=== PATIENT | male | born 1965 | race Hispanic/Latino ===

== ENCOUNTER → 2017-09-11 | Outpatient (CLI) | payer MEDICAID ==
[~2017-09-11] MED LIST: AMLO5TAB4 PO; HUM10VIA6 SQ
[2017-09-11 13:32] VITALS: BP 164/101
== END | disposition home or self-care (01) ==
LOC: WHH 10:07
PROVIDERS: ATTEND Podiatrist Foot & Ankle Surgery
DX: E11.621 Type 2 diabetes mellitus with foot ulcer (principal); L97.521 Non-pressure chronic ulcer of other part of left foot limited to breakdown of skin; L97.421 Non-pressure chronic ulcer of left heel and midfoot limited to breakdown of skin; E11.42 Type 2 diabetes mellitus with diabetic polyneuropathy; E66.01 Morbid (severe) obesity due to excess calories; E11.22 Type 2 diabetes mellitus with diabetic chronic kidney disease; I12.0 Hypertensive chronic kidney disease with stage 5 chronic kidney disease or end stage renal disease; N18.6 End stage renal disease; E11.21 Type 2 diabetes mellitus with diabetic nephropathy; E11.52 Type 2 diabetes mellitus with diabetic peripheral angiopathy with gangrene; E11.69 Type 2 diabetes mellitus with other specified complication; M86.8X8 Other osteomyelitis, other site; F10.11 Alcohol abuse, in remission; Z68.41 Body mass index [BMI] 40.0-44.9, adult
CPT/HCPCS: 10060; 87070; A4450; A6197; L3260

== ENCOUNTER → 2017-09-18 | Outpatient (CLI) | payer MEDICAID ==
[2017-09-18 14:32] VITALS: BP 139/88
== END | disposition home or self-care (01) ==
LOC: WHH 10:20
PROVIDERS: ATTEND Podiatrist Foot & Ankle Surgery
DX: E11.621 Type 2 diabetes mellitus with foot ulcer (principal); L97.523 Non-pressure chronic ulcer of other part of left foot with necrosis of muscle; E11.22 Type 2 diabetes mellitus with diabetic chronic kidney disease; I12.0 Hypertensive chronic kidney disease with stage 5 chronic kidney disease or end stage renal disease; N18.6 End stage renal disease; E11.42 Type 2 diabetes mellitus with diabetic polyneuropathy; E11.21 Type 2 diabetes mellitus with diabetic nephropathy; E11.52 Type 2 diabetes mellitus with diabetic peripheral angiopathy with gangrene; E11.69 Type 2 diabetes mellitus with other specified complication; M86.8X8 Other osteomyelitis, other site; E66.01 Morbid (severe) obesity due to excess calories; F10.11 Alcohol abuse, in remission; Z68.41 Body mass index [BMI] 40.0-44.9, adult
CPT/HCPCS: 99214; A6248; A6253

== ENCOUNTER → 2017-09-25 | Outpatient (CLI) | payer MEDICAID ==
[2017-09-25 16:30] VITALS: BP 129/72
== END | disposition home or self-care (01) ==
LOC: WHH 09:50
PROVIDERS: ATTEND Podiatrist Foot & Ankle Surgery
DX: E11.621 Type 2 diabetes mellitus with foot ulcer (principal); L97.521 Non-pressure chronic ulcer of other part of left foot limited to breakdown of skin; E11.69 Type 2 diabetes mellitus with other specified complication; M86.8X7 Other osteomyelitis, ankle and foot; E11.42 Type 2 diabetes mellitus with diabetic polyneuropathy; E11.21 Type 2 diabetes mellitus with diabetic nephropathy; E11.52 Type 2 diabetes mellitus with diabetic peripheral angiopathy with gangrene; I96 Gangrene, not elsewhere classified; E11.65 Type 2 diabetes mellitus with hyperglycemia; E11.22 Type 2 diabetes mellitus with diabetic chronic kidney disease; I12.0 Hypertensive chronic kidney disease with stage 5 chronic kidney disease or end stage renal disease; N18.6 End stage renal disease; F10.11 Alcohol abuse, in remission; E66.01 Morbid (severe) obesity due to excess calories; Z68.41 Body mass index [BMI] 40.0-44.9, adult; Y90.9 Presence of alcohol in blood, level not specified
CPT/HCPCS: 99214; A6197; A6248

== ENCOUNTER → 2017-10-02 | Outpatient (CLI) | payer MEDICAID ==
[2017-10-02 14:39] VITALS: BP 161/95
== END | disposition home or self-care (01) ==
LOC: WHH 09:50
PROVIDERS: ATTEND Podiatrist Foot & Ankle Surgery
DX: E11.621 Type 2 diabetes mellitus with foot ulcer (principal); L97.521 Non-pressure chronic ulcer of other part of left foot limited to breakdown of skin; E11.69 Type 2 diabetes mellitus with other specified complication; M86.8X7 Other osteomyelitis, ankle and foot; E11.42 Type 2 diabetes mellitus with diabetic polyneuropathy; E11.21 Type 2 diabetes mellitus with diabetic nephropathy; E11.52 Type 2 diabetes mellitus with diabetic peripheral angiopathy with gangrene; I96 Gangrene, not elsewhere classified; E11.65 Type 2 diabetes mellitus with hyperglycemia; E11.22 Type 2 diabetes mellitus with diabetic chronic kidney disease; I12.0 Hypertensive chronic kidney disease with stage 5 chronic kidney disease or end stage renal disease; N18.6 End stage renal disease; F10.11 Alcohol abuse, in remission; E66.01 Morbid (severe) obesity due to excess calories; Z68.41 Body mass index [BMI] 40.0-44.9, adult; Y90.9 Presence of alcohol in blood, level not specified
CPT/HCPCS: 97597

== ENCOUNTER → 2017-10-04 | Outpatient (CLI) | payer MEDICAID ==
[2017-10-04 10:36] VITALS: BP 158/82
== END | disposition home or self-care (01) ==
LOC: WHH 10:00
PROVIDERS: ATTEND Podiatrist Foot & Ankle Surgery
DX: E11.621 Type 2 diabetes mellitus with foot ulcer (principal); L97.521 Non-pressure chronic ulcer of other part of left foot limited to breakdown of skin; E11.69 Type 2 diabetes mellitus with other specified complication; M86.8X7 Other osteomyelitis, ankle and foot; E11.42 Type 2 diabetes mellitus with diabetic polyneuropathy; E11.21 Type 2 diabetes mellitus with diabetic nephropathy; E11.52 Type 2 diabetes mellitus with diabetic peripheral angiopathy with gangrene; E11.22 Type 2 diabetes mellitus with diabetic chronic kidney disease; I12.0 Hypertensive chronic kidney disease with stage 5 chronic kidney disease or end stage renal disease; N18.6 End stage renal disease; F10.11 Alcohol abuse, in remission; E66.01 Morbid (severe) obesity due to excess calories; I96 Gangrene, not elsewhere classified; Z68.41 Body mass index [BMI] 40.0-44.9, adult; Y90.9 Presence of alcohol in blood, level not specified
CPT/HCPCS: 99211; A6197; A6209

== ENCOUNTER → 2017-10-16 | Outpatient (CLI) | payer MEDICAID ==
[2017-10-16 14:42] VITALS: BP 150/82
== END | disposition home or self-care (01) ==
LOC: WHH 10:00
PROVIDERS: ATTEND Podiatrist Foot & Ankle Surgery
DX: E11.621 Type 2 diabetes mellitus with foot ulcer (principal); L97.521 Non-pressure chronic ulcer of other part of left foot limited to breakdown of skin; E11.69 Type 2 diabetes mellitus with other specified complication; M86.8X7 Other osteomyelitis, ankle and foot; E11.42 Type 2 diabetes mellitus with diabetic polyneuropathy; E11.21 Type 2 diabetes mellitus with diabetic nephropathy; E11.52 Type 2 diabetes mellitus with diabetic peripheral angiopathy with gangrene; I96 Gangrene, not elsewhere classified; E11.22 Type 2 diabetes mellitus with diabetic chronic kidney disease; I12.0 Hypertensive chronic kidney disease with stage 5 chronic kidney disease or end stage renal disease; N18.6 End stage renal disease; F10.11 Alcohol abuse, in remission; E66.01 Morbid (severe) obesity due to excess calories; Z68.41 Body mass index [BMI] 40.0-44.9, adult; Y90.9 Presence of alcohol in blood, level not specified
CPT/HCPCS: 99211; A6209

== ENCOUNTER → 2017-10-23 | Outpatient (CLI) | payer MEDICAID ==
[2017-10-23 13:18] VITALS: BP 157/99
== END | disposition home or self-care (01) ==
LOC: WHH 09:45
PROVIDERS: ATTEND Podiatrist Foot & Ankle Surgery
DX: E11.621 Type 2 diabetes mellitus with foot ulcer (principal); L97.521 Non-pressure chronic ulcer of other part of left foot limited to breakdown of skin; E11.69 Type 2 diabetes mellitus with other specified complication; M86.8X7 Other osteomyelitis, ankle and foot; E11.42 Type 2 diabetes mellitus with diabetic polyneuropathy; E11.52 Type 2 diabetes mellitus with diabetic peripheral angiopathy with gangrene; I96 Gangrene, not elsewhere classified; E11.65 Type 2 diabetes mellitus with hyperglycemia; E11.22 Type 2 diabetes mellitus with diabetic chronic kidney disease; I12.0 Hypertensive chronic kidney disease with stage 5 chronic kidney disease or end stage renal disease; N18.6 End stage renal disease; F10.11 Alcohol abuse, in remission; E66.01 Morbid (severe) obesity due to excess calories; Z68.41 Body mass index [BMI] 40.0-44.9, adult; Y90.9 Presence of alcohol in blood, level not specified
CPT/HCPCS: 99214; A4450; A6209; A6248

== ENCOUNTER → 2017-10-30 | Outpatient (CLI) | payer MEDICAID ==
[2017-10-30 14:49] VITALS: BP 190/106
== END | disposition home or self-care (01) ==
LOC: WHH 10:25
PROVIDERS: ATTEND Podiatrist Foot & Ankle Surgery
DX: E11.621 Type 2 diabetes mellitus with foot ulcer (principal); L97.521 Non-pressure chronic ulcer of other part of left foot limited to breakdown of skin; E11.69 Type 2 diabetes mellitus with other specified complication; M86.8X7 Other osteomyelitis, ankle and foot; E11.42 Type 2 diabetes mellitus with diabetic polyneuropathy; E11.52 Type 2 diabetes mellitus with diabetic peripheral angiopathy with gangrene; I96 Gangrene, not elsewhere classified; E11.65 Type 2 diabetes mellitus with hyperglycemia; E11.22 Type 2 diabetes mellitus with diabetic chronic kidney disease; I12.0 Hypertensive chronic kidney disease with stage 5 chronic kidney disease or end stage renal disease; N18.6 End stage renal disease; F10.11 Alcohol abuse, in remission; E66.01 Morbid (severe) obesity due to excess calories; Z68.41 Body mass index [BMI] 40.0-44.9, adult; Y90.9 Presence of alcohol in blood, level not specified
CPT/HCPCS: 99214

== ENCOUNTER → 2017-11-13 | Outpatient (CLI) | payer MEDICAID ==
[2017-11-13 14:11] VITALS: BP 177/95
== END | disposition home or self-care (01) ==
LOC: WHH 10:30
PROVIDERS: ATTEND Podiatrist Foot & Ankle Surgery
DX: E11.621 Type 2 diabetes mellitus with foot ulcer (principal); L97.521 Non-pressure chronic ulcer of other part of left foot limited to breakdown of skin; E11.69 Type 2 diabetes mellitus with other specified complication; M86.8X7 Other osteomyelitis, ankle and foot; E11.42 Type 2 diabetes mellitus with diabetic polyneuropathy; E11.52 Type 2 diabetes mellitus with diabetic peripheral angiopathy with gangrene; I96 Gangrene, not elsewhere classified; E11.65 Type 2 diabetes mellitus with hyperglycemia; E11.22 Type 2 diabetes mellitus with diabetic chronic kidney disease; I12.0 Hypertensive chronic kidney disease with stage 5 chronic kidney disease or end stage renal disease; N18.6 End stage renal disease; F10.11 Alcohol abuse, in remission; E66.01 Morbid (severe) obesity due to excess calories; Z68.41 Body mass index [BMI] 40.0-44.9, adult; Y90.9 Presence of alcohol in blood, level not specified
CPT/HCPCS: 99214; A6209

== ENCOUNTER 2020-01-06 18:12 | Inpatient (IN) | payer MEDICAID ==
[~2020-01-06] VITALS: Ht 170.2 cm; Wt 114.8 kg
[2020-01-06] MEDS ORDERED: ZOSYN 3.375GM+NS 50ML 50 ML IV ONE (19:19)
[2020-01-06 19:22] LABS: BASOPHILS % (AUTO) 0.4 % (0.0-5.0); HEMATOCRIT 21.7 % (42-54); LYMPHOCYTES % (AUTO) 4.5 % (21.0-51.0); MEAN CORPUSCULAR HGB CONC 34.1 g/dL (32.0-36.0); MEAN CORPUSCULAR VOLUME 85.1 fL (79-99); NEUTROPHILS % (AUTO) 89.7 % (40.0-77.0); PLATELET COUNT (AUTO) 316 K/uL (130-400); RED BLOOD CELL COUNT(AUTO) 2.55 MIL/uL (4.50-6.20); RED CELL DISTRIBUTION WIDTH 13.2 % (11.0-15.5); WHITE BLOOD COUNT (AUTO) 13.5 K/uL (4.8-10.8)
[2020-01-06 19:47] LABS: INR 1.05 (0.85-1.15); PARTIAL THROMBOPLASTIN TIME 31.7 SEC (26.3-35.5); PROTHROMBIN TIME 11.3 SEC (9.6-11.6)
[2020-01-06 19:54] LABS: ALANINE AMINOTRANSFERASE 13 U/L (12-78); ALBUMIN 2.8 g/dL (3.5-5.0); ASPARTATE AMINOTRANSFERASE 14 U/L (10-37); BILIRUBIN,TOTAL 0.2 mg/dL (0.2-1.0); CARBON DIOXIDE 18 mmol/L (21-32); CHLORIDE 96 mmol/L (101-111); CREATINE KINASE, TOTAL 89 U/L (21-232); GLOMERULAR FILTR. RATE CALC 8 mL/min (>60); GLUCOSE,RANDOM 160 mg/dL (70-105); MYOGLOBIN 360 ng/mL (10-92); POTASSIUM 5.7 mmol/L (3.5-5.1); SODIUM SERUM 128 mmol/L (136-145); TOTAL PROTEIN, SERUM 8.5 g/dL (6.0-8.3); TROPONIN I < 0.04 ng/mL (0.00-0.06); UREA NITROGEN, BLOOD 65 mg/dL (7-18)
[2020-01-06] MEDS ORDERED: SODIUM POLYSTYRENE SULFONATE 15 GM/60 ML ML ONE (20:34)
[2020-01-06 20:45] LABS: APPEARANCE,URINE Clear (CLEAR); BILIRUBIN,URINE Negative (NEGATIVE); COLOR,URINE Yellow (YELLOW); GLUCOSE, URINE (UA) TRACE mg/dL (NEGATIVE); KETONES,URINE Negative (NEGATIVE); LEUKOCYTE ESTERASE ,URINE Negative (NEGATIVE); NITRATE,URINE Negative (NEGATIVE); OCCULT BLOOD,URINE Small (NEGATIVE); PROTEIN,URINE 300 mg/dL (NEGATIVE); UROBILINOGEN,URINE 0.2 mg/dL (0.2-1.0)
[2020-01-06] MEDS ORDERED: VANCOMYCIN 1.5 GM in SODIUM CHLORIDE 0.9% 250 ML IV ONE (20:45)
[2020-01-06] MEDS ORDERED: DEXTROSE 50%-WATER 50 ML DISP.SYRIN IV PRN (21:00)
[2020-01-06] MEDS ORDERED: GLUCAGON 1MG KIT 1 MG ML IM PRN (21:00)
[2020-01-06] MEDS ORDERED: ZOSYN 3.375GM+NS 50ML 50 ML IV SCH (21:00)
[2020-01-06] MEDS ORDERED: SODIUM POLYSTYRENE SULFONATE 15 GM/60 ML ML PO ONE (21:00)
[2020-01-06] MEDS ORDERED: ONDANSETRON HCL 4 MG/2 ML VIAL IVP PRN (21:00)
[2020-01-06 21:40] LABS: RBC,URINE 0-1 /HPF (0-1); WBC,URINE 0-1 /HPF (0-1)
[2020-01-06 21:41] LABS: BACTERIA,URINE Rare /HPF (None Seen); HYALINE CASTS, URINE 0-1 /LPF (0-1 /LPF); SQUAMOUS EPITHELIAL CELL,UR Rare /HPF (0-2)
[2020-01-07 05:07] LABS: BASOPHILS % (AUTO) 0.5 % (0.0-5.0); EOSINOPHILS % (AUTO) 1.6 % (0.0-8.0); LYMPHOCYTES % (AUTO) 7.4 % (21.0-51.0); MEAN CORPUSCULAR HEMOGLOBIN 28.6 pg (27.0-33.0); MEAN CORPUSCULAR HGB CONC 33.7 g/dL (32.0-36.0); MEAN CORPUSCULAR VOLUME 84.9 fL (79-99); MONOCYTES % (AUTO) 5.5 % (3.0-13.0); NEUTROPHILS % (AUTO) 84.4 % (40.0-77.0); PLATELET COUNT (AUTO) 297 K/uL (130-400); RED BLOOD CELL COUNT(AUTO) 2.38 MIL/uL (4.50-6.20); RED CELL DISTRIBUTION WIDTH 13.2 % (11.0-15.5); WHITE BLOOD COUNT (AUTO) 12.3 K/uL (4.8-10.8)
[2020-01-07 05:30] LABS: INR 1.07 (0.85-1.15); PARTIAL THROMBOPLASTIN TIME 30.7 SEC (26.3-35.5); PROTHROMBIN TIME 11.5 SEC (9.6-11.6)
[2020-01-07 05:35] LABS: ALBUMIN 2.5 g/dL (3.5-5.0); BILIRUBIN,TOTAL 0.2 mg/dL (0.2-1.0); HEMATOCRIT 20.2 % (42-54); MAGNESIUM 2.2 mg/dL (1.80-2.40); PHOSPHORUS 6.6 mg/dL (2.5-4.9); POTASSIUM 5.7 mmol/L (3.5-5.1); TOTAL PROTEIN, SERUM 7.8 g/dL (6.0-8.3); URIC ACID 11.8 mg/dL (2.6-7.2)
[2020-01-07 05:46] LABS: CREATININE 8.1 mg/dL (0.5-1.5)
[2020-01-07 06:00] LABS: HEMOGLOBIN A1C 6.5 % (4.0-6.0)
[2020-01-07] MEDS: ZOSYN 3.375GM+NS 50ML 50 ML IV SCH ×2 (06:00→18:00)
[2020-01-07] MEDS ORDERED: ZOSYN 3.375GM+NS 50ML 50 ML IV ONE (07:08)
[2020-01-07 08:57] LABS: HEMATOCRIT 19.8 % (42-54)
[2020-01-07] MEDS: Vitamin B Complex/Vit C/Folic Acid PO SCH (09:00)
[2020-01-07] MEDS ORDERED: FAMOTIDINE/PF 20 MG/2 ML VIAL IV SCH (09:00)
[2020-01-07] MEDS: INSULIN R PO SS1 SQ SCH ×3 (11:30→21:28)
--- NOTE | 2020-01-07 14:00 | NUR ---
CARE TRANSFERRED TO [place]. AAOX4, IN NO APPARENT DISTRESS, DENIES PAIN.
[2020-01-07 15:26] LABS: % IRON SATURATION 20.1 % (30-44)
[2020-01-07] MEDS ORDERED: SODIUM POLYSTYRENE SULFONATE 15 GM/60 ML ML ONE (15:59)
[2020-01-07] MEDS: SODIUM POLYSTYRENE SULFONATE 15 GM/60 ML ML PO SCH (16:01)
--- NOTE | 2020-01-07 16:12 | NUR ---
MET WITH PATIENT AT BEDSIDE IN ER DR. ABERNATHY MENTIONED THAT HE HAD RECOMMENDED HD ON THIS ADMISSION TO PATIENT . PT DECLINED IA DONE, PT LIVES ALONE, APT NO STAIRS, NO DME, DRIVES, INDEPENDENT, FOOT INJURY A WEEK+ AGO, CURRENTLY USING A WALKER, LIVING WITH EX SPOUSE, MOBILITY IMPAIRED2/2/ TO PAIN IN FOOT, FOUND TO HAVE ++ RENAL FAILURE, PT STATES WANTS TO THINK ABOUT HD X ONE MORE MONTH. ANNIE TO HAVING DM FOR MANY YEARS, POOR COMPLIANCE. COUNSELLED AND EDUCATION DONE ON HD/RISK AND BENEFIT. \DCP WILL BE HOME. Addendum: 01/07/20 at 1616 by GREG NASH RN Amended: Links added.
[2020-01-07 20:00] VITALS: BP 143/81
[2020-01-07 20:10] VITALS: BP 132/60
[2020-01-07] MEDS ORDERED: LISI-613 PO (20:18)
[2020-01-07] MEDS ORDERED: INSU10VI3 SQ (20:25)
[2020-01-07] MEDS ORDERED: INSULIN HUMULIN R 100 UNIT/ML 3ML ONE (21:24)
[2020-01-07 23:25] VITALS: BP 157/86
[2020-01-08] VITALS (19 sets, daily range): BP systolic 127–158; BP diastolic 71–92
[2020-01-08 03:43] LABS: BASOPHILS % (AUTO) 0.6 % (0.0-5.0); EOSINOPHILS % (AUTO) 2.6 % (0.0-8.0); HEMATOCRIT 21.7 % (42-54); LYMPHOCYTES % (AUTO) 8.9 % (21.0-51.0); MEAN CORPUSCULAR HEMOGLOBIN 28.8 pg (27.0-33.0); MEAN CORPUSCULAR HGB CONC 33.2 g/dL (32.0-36.0); MEAN CORPUSCULAR VOLUME 86.8 fL (79-99); MONOCYTES % (AUTO) 6.5 % (3.0-13.0); NEUTROPHILS % (AUTO) 81.1 % (40.0-77.0); PLATELET COUNT (AUTO) 305 K/uL (130-400); RED CELL DISTRIBUTION WIDTH 13.2 % (11.0-15.5); WHITE BLOOD COUNT (AUTO) 9.3 K/uL (4.8-10.8)
[2020-01-08 03:57] LABS: INR 1.05 (0.85-1.15); PARTIAL THROMBOPLASTIN TIME 30.6 SEC (26.3-35.5); PROTHROMBIN TIME 11.3 SEC (9.6-11.6)
[2020-01-08 04:02] LABS: POTASSIUM 5.3 mmol/L (3.5-5.1)
[2020-01-08] MEDS: INSULIN R PO SS1 SQ SCH ×4 (06:43→21:42)
[2020-01-08] MEDS: ZOSYN 3.375GM+NS 50ML 50 ML IV SCH ×2 (08:57→21:40)
[2020-01-08] MEDS: Vitamin B Complex/Vit C/Folic Acid PO SCH (08:57)
[2020-01-08] MEDS: FAMOTIDINE 20MG TAB 20 MG TAB PO SCH (09:52)
[2020-01-08] MEDS ORDERED: SODIUM CHLORIDE 0.9% 1000ML 1,000 ML IV ONE (13:31)
--- NOTE | 2020-01-08 13:53 | NUR ---
TAKEN TO SURGERY WITHOUT INCIDENT. PT AWAKE, ALERT. ASKED PT TO NOTIFY FAMILY
[2020-01-08] MEDS ORDERED: LIDOCAINE HCL 1% MDV 50ML VIAL ONE (14:10)
[2020-01-08] MEDS ORDERED: BUPIVACAINE/PF 0.5% 10ML VIAL ONE (14:10)
[2020-01-08] MEDS ORDERED: LIDOCAINE PF 2% 5ML ABBOJECT ONE ×2 (14:27→14:28)
[2020-01-08] MEDS ORDERED: PROPOFOL 10 MG/ML 20ML VIAL IV ONE (14:27)
[2020-01-08] MEDS ORDERED: SUCCINYLCHOLINE 200MG/10ML SYR ONE ×2 (14:27→14:34)
[2020-01-08] MEDS ORDERED: MIDAZOLAM HCL 1 MG/ML 2ML VIAL ONE (14:27)
[2020-01-08] MEDS ORDERED: DEXAMETHASONE SOD PHOSPHATE 10MG/ML 1ML VIAL ONE (14:27)
[2020-01-08] MEDS ORDERED: GLYCOPYRROLATE 1 MG/5 ML SYRINGE ONE (14:28)
[2020-01-08] MEDS ORDERED: NEOSTIGMINE 5MG/5ML SYR IV ONE (14:28)
[2020-01-08] MEDS ORDERED: FENTANYL CITRATE PF 50 MCG/1 ML 2ML VIAL ONE ×2 (14:28→14:41)
--- NOTE | 2020-01-08 16:41 | NUR ---
RECEIVED PT FROM SURGERY VS STABLE , PT IS ALERT ORIENTED, PT STATES HE CALLED TO INFORM HER THAT HE IS OUT OF SURGERY
[2020-01-08] MEDS: SODIUM POLYSTYRENE SULFONATE 15 GM/60 ML ML PO SCH (16:57)
[2020-01-08] MEDS: ACETAMINOPHEN 325 MG TAB PO PRN (21:40)
[2020-01-09] VITALS (7 sets, daily range): BP systolic 115–149; BP diastolic 64–83
[2020-01-09] MEDS: INSULIN R PO SS1 SQ SCH ×4 (06:45→20:40)
[2020-01-09 08:23] LABS: BASOPHILS % (AUTO) 0.5 % (0.0-5.0); EOSINOPHILS % (AUTO) 2.7 % (0.0-8.0); LYMPHOCYTES % (AUTO) 9.4 % (21.0-51.0); MEAN CORPUSCULAR HEMOGLOBIN 29.3 pg (27.0-33.0); MEAN CORPUSCULAR HGB CONC 34.1 g/dL (32.0-36.0); MEAN CORPUSCULAR VOLUME 85.9 fL (79-99); PLATELET COUNT (AUTO) 322 K/uL (130-400); RED BLOOD CELL COUNT(AUTO) 2.56 MIL/uL (4.50-6.20); RED CELL DISTRIBUTION WIDTH 13.5 % (11.0-15.5); WHITE BLOOD COUNT (AUTO) 11.3 K/uL (4.8-10.8)
[2020-01-09] MEDS: Vitamin B Complex/Vit C/Folic Acid PO SCH (09:00)
[2020-01-09] MEDS: FAMOTIDINE 20MG TAB 20 MG TAB PO SCH (09:00)
[2020-01-09] MEDS: ZOSYN 3.375GM+NS 50ML 50 ML IV SCH ×2 (09:03→21:06)
[2020-01-09 09:27] LABS: POTASSIUM 5.3 mmol/L (3.5-5.1)
[2020-01-09] MEDS: SODIUM POLYSTYRENE SULFONATE 15 GM/60 ML ML PO SCH (14:52)
[2020-01-10 03:56] VITALS: BP 139/89
[2020-01-10 05:05] LABS: HEMATOCRIT 21.7 % (42-54); MEAN CORPUSCULAR HEMOGLOBIN 29.1 pg (27.0-33.0); MEAN CORPUSCULAR HGB CONC 33.2 g/dL (32.0-36.0); MEAN CORPUSCULAR VOLUME 87.9 fL (79-99); RED BLOOD CELL COUNT(AUTO) 2.47 MIL/uL (4.50-6.20); RED CELL DISTRIBUTION WIDTH 13.4 % (11.0-15.5); WHITE BLOOD COUNT (AUTO) 7.1 K/uL (4.8-10.8)
[2020-01-10 05:26] LABS: PHOSPHORUS 7.3 mg/dL (2.5-4.9); POTASSIUM 4.8 mmol/L (3.5-5.1)
[2020-01-10 05:45] LABS: CREATININE 8.6 mg/dL (0.5-1.5)
[2020-01-10] MEDS: INSULIN R PO SS1 SQ SCH ×4 (06:17→22:07)
[2020-01-10 08:00] VITALS: BP 139/86
[2020-01-10] MEDS: Vitamin B Complex/Vit C/Folic Acid PO SCH (09:54)
[2020-01-10] MEDS: FAMOTIDINE 20MG TAB 20 MG TAB PO SCH (09:54)
[2020-01-10] MEDS: ZOSYN 3.375GM+NS 50ML 50 ML IV SCH ×2 (09:54→22:00)
[2020-01-10 11:55] VITALS: BP 132/89
[2020-01-10 16:00] VITALS: BP 139/80
[2020-01-10] MEDS: SODIUM POLYSTYRENE SULFONATE 15 GM/60 ML ML PO SCH (16:40)
[2020-01-10 19:49] VITALS: BP 171/93
--- NOTE | 2020-01-10 22:00 | NUR ---
ASSESSMENT PT RESTING QUIETLY IN BED. AAOX4, PLEASANT, COOPERATIVE. CURRENTLY DENIES ANY PAIN. WOUND VAC INTACT, NO LEAK NOTED. ASSESSMENT COMPLETED, SEE FLOW SHEET.
[2020-01-10 23:32] VITALS: BP 125/71
[2020-01-11 03:56] VITALS: BP 175/84
[2020-01-11 04:13] LABS: MEAN CORPUSCULAR HEMOGLOBIN 28.9 pg (27.0-33.0); MEAN CORPUSCULAR HGB CONC 33.7 g/dL (32.0-36.0); PLATELET COUNT (AUTO) 275 K/uL (130-400); RED BLOOD CELL COUNT(AUTO) 2.28 MIL/uL (4.50-6.20); RED CELL DISTRIBUTION WIDTH 13.7 % (11.0-15.5); WHITE BLOOD COUNT (AUTO) 6.9 K/uL (4.8-10.8)
[2020-01-11 04:21] LABS: INR 1.07 (0.85-1.15); PARTIAL THROMBOPLASTIN TIME 28.8 SEC (26.3-35.5); PROTHROMBIN TIME 11.5 SEC (9.6-11.6)
[2020-01-11 04:32] LABS: ALBUMIN 2.3 g/dL (3.5-5.0); BILIRUBIN,TOTAL 0.2 mg/dL (0.2-1.0); POTASSIUM 4.6 mmol/L (3.5-5.1); TOTAL PROTEIN, SERUM 7.4 g/dL (6.0-8.3)
[2020-01-11 04:33] LABS: HEMATOCRIT 19.6 % (42-54)
[2020-01-11 04:41] LABS: CREATININE 8.2 mg/dL (0.5-1.5)
[2020-01-11 04:49] LABS: BAND NEUTROPHILS % (MANUAL) 1 % (0-2); EOSINOPHILS % (MANUAL) 4 % (1-6); LYMPHOCYTES % (MANUAL) 11 % (22-44); MONOCYTES % (MANUAL) 3 % (2-9); SEGMENTED NEUTROPHILS % 81 % (40-70)
[2020-01-11 04:50] LABS: MAN.DIFF COMMENT-IMPRESSION MANUAL DIFFERENTIAL; PLATELET MORPHOLOGY COMMENT ADEQUATE
[2020-01-11] MEDS: INSULIN R PO SS1 SQ SCH ×4 (05:49→21:00)
[2020-01-11] MEDS: Vitamin B Complex/Vit C/Folic Acid PO SCH (08:16)
[2020-01-11] MEDS: ZOSYN 3.375GM+NS 50ML 50 ML IV SCH ×2 (08:16→21:24)
[2020-01-11] MEDS: FAMOTIDINE 20MG TAB 20 MG TAB PO SCH (08:16)
[2020-01-11 09:13] VITALS: BP 175/94
[2020-01-11] MEDS: SODIUM POLYSTYRENE SULFONATE 15 GM/60 ML ML PO SCH (11:16)
[2020-01-11] MEDS ORDERED: SODIUM CHLORIDE 0.9% 250 ML IV ONE (11:34)
[2020-01-11 11:41] VITALS: BP 152/71
[2020-01-11] MEDS: ACETAMINOPHEN 325 MG TAB PO PRN (12:44)
--- NOTE | 2020-01-11 14:25 | NUR ---
CM NOTE/PENDING WOUND VAC RECOMMENDATIONS PLACED CALL TO DR. ESPINOZA OFFICE, CLOSED FOR . CELL CALLED, NO ANSWER, UNABLE TO LEAVE VOICEMAIL. INFORMED PRIMARY NURSE, ELLIOTT CASTELLON, OF PENDING ORDER FOR WOUND CARE RECOMMENDATIONS AND DC PLAN. PER NURSE, WILL REPORT TO MD WHEN ROUNDS. PENDING PERMACATH TOMORROW FOR DIALYSIS INITIATION. CM TO FOLLOW UP
[2020-01-11 17:16] VITALS: BP 136/83
[2020-01-11 19:17] VITALS: BP 167/92
[2020-01-11 23:37] VITALS: BP 176/91
[2020-01-12] VITALS (11 sets, daily range): BP systolic 131–185; BP diastolic 47–98
[2020-01-12 04:04] LABS: HEMATOCRIT 22.5 % (42-54); MEAN CORPUSCULAR HEMOGLOBIN 28.3 pg (27.0-33.0); MEAN CORPUSCULAR HGB CONC 33.3 g/dL (32.0-36.0); MEAN CORPUSCULAR VOLUME 84.9 fL (79-99); RED BLOOD CELL COUNT(AUTO) 2.65 MIL/uL (4.50-6.20); RED CELL DISTRIBUTION WIDTH 14.1 % (11.0-15.5); WHITE BLOOD COUNT (AUTO) 7.8 K/uL (4.8-10.8)
[2020-01-12 04:26] LABS: POTASSIUM 4.7 mmol/L (3.5-5.1)
[2020-01-12 04:44] LABS: CREATININE 8.6 mg/dL (0.5-1.5)
[2020-01-12] MEDS: INSULIN R PO SS1 SQ SCH ×4 (05:49→21:52)
[2020-01-12] MEDS: FAMOTIDINE 20MG TAB 20 MG TAB PO SCH (09:00)
[2020-01-12] MEDS: Vitamin B Complex/Vit C/Folic Acid PO SCH (09:00)
--- NOTE | 2020-01-12 09:00 | NUR ---
PAGED DR. ABERNATHY REGARDING ELEVATED BP 181/97, PATIENT ASYMPTOMATIC, PENDING CALL BACK
--- NOTE | 2020-01-12 09:02 | NUR ---
RECEIVED CALL BACK FROM DR. ABERNATHY, MADE AWARE OF BP 181/97, NO NEW ORDERS STATED PATIENT NEEDS DIALYSIS. PATIENT AT THIS TIME IS PENDING PERMACATH PLACEMENT, DR. ABERNATHY AWARE
--- NOTE | 2020-01-12 09:55 | NUR ---
[facility] consult Wound vac was changed on 01/11/20. Not due for change today.
[2020-01-12] MEDS: ZOSYN 3.375GM+NS 50ML 50 ML IV SCH ×2 (10:15→20:47)
[2020-01-12] MEDS ORDERED: LIDOCAINE HCL 1% MDV 50ML VIAL ONE (11:20)
[2020-01-12] MEDS: SODIUM POLYSTYRENE SULFONATE 15 GM/60 ML ML PO SCH (11:25)
[2020-01-12] MEDS ORDERED: LIDOCAINE HCL 2% 20ML ONE (11:25)
[2020-01-12] MEDS ORDERED: SODIUM BICARB 50MEQ 50ML VIAL ONE (11:25)
--- NOTE | 2020-01-12 15:22 | NUR ---
RD NOTIFICATION Pt admitted with Renal Failure. Pt tolerating Renal Non Dialysis Diet order with no report of GI distress, 100% PO intake. Pt NPO at time of screen. Altered renal lab values pending hemodialysis. Pt s/p foot wound debridement with wound vac in place. Pt is vegetarian. Recommend Renal Dialysis, Vegetarian Diet Order Recommend Zeus BID for wound healing support RD to follow up with Vegetarian Dialysis Nutrition education RD to continue to monitor. Please notify as additional nutrition concerns arise. Thank you. Addendum: 01/12/20 at [address] RD Amended: Links added.
[2020-01-12 15:44] LABS: ALBUMIN 2.6 g/dL (3.5-5.0)
[2020-01-12 15:55] LABS: CREATININE 8.3 mg/dL (0.5-1.5)
[2020-01-12 16:01] LABS: % IRON SATURATION 27.8 % (30-44)
[2020-01-12 16:07] LABS: HEMOGLOBIN A1C 6.6 % (4.0-6.0)
[2020-01-12] MEDS ORDERED: HEPARIN SODIUM 5000UNIT/ML 1ML VIAL ONE (17:00)
[2020-01-13 03:07] VITALS: BP 157/86
[2020-01-13 04:33] LABS: BASOPHILS % (AUTO) 0.6 % (0.0-5.0); HEMATOCRIT 23.6 % (42-54); LYMPHOCYTES % (AUTO) 14.7 % (21.0-51.0); MEAN CORPUSCULAR HEMOGLOBIN 27.9 pg (27.0-33.0); MEAN CORPUSCULAR HGB CONC 33.5 g/dL (32.0-36.0); MEAN CORPUSCULAR VOLUME 83.4 fL (79-99); MONOCYTES % (AUTO) 5.3 % (3.0-13.0); NEUTROPHILS % (AUTO) 76.3 % (40.0-77.0); PLATELET COUNT (AUTO) 298 K/uL (130-400); RED BLOOD CELL COUNT(AUTO) 2.83 MIL/uL (4.50-6.20)
[2020-01-13 04:52] LABS: CREATININE 6.5 mg/dL (0.5-1.5); PHOSPHORUS 4.9 mg/dL (2.5-4.9); POTASSIUM 4.1 mmol/L (3.5-5.1)
[2020-01-13] MEDS: INSULIN R PO SS1 SQ SCH ×4 (06:28→21:00)
[2020-01-13 07:00] VITALS: BP 158/83
[2020-01-13] MEDS: FAMOTIDINE 20MG TAB 20 MG TAB PO SCH (08:20)
[2020-01-13] MEDS: Vitamin B Complex/Vit C/Folic Acid PO SCH (08:21)
[2020-01-13] MEDS: ZOSYN 3.375GM+NS 50ML 50 ML IV SCH ×2 (08:29→20:17)
[2020-01-13 11:00] VITALS: BP 110/69
--- NOTE | 2020-01-13 11:45 | NUR ---
dialysis treatment completed with a removal of 2 liter . tolerate well . denies any discomfort . call light i nreach .seeacutdialyslis care flow sheet for treatment and v/s .
[2020-01-13] MEDS ORDERED: HEPARIN SODIUM 5000UNIT/ML 1ML VIAL ONE (12:07)
[2020-01-13] MEDS ORDERED: 0.9% SODIUM CHLORIDE 1000 ML IV BAG IV PRN (12:15)
[2020-01-13] MEDS ORDERED: HEPARIN SODIUM 5000UNIT/ML 1ML VIAL IJ PRN ×2 (12:15)
[2020-01-13] MEDS ORDERED: SODIUM CHLORIDE 0.9% 1000ML 1,000 ML IV PRN (12:15)
[2020-01-13] MEDS: SODIUM POLYSTYRENE SULFONATE 15 GM/60 ML ML PO SCH (12:53)
--- NOTE | 2020-01-13 13:40 | NUR ---
DR. LLAMAS WAS NOTIFY ABD ,RETURN CALLED AND UPDATE OF PT . HAD HIS 2ND DIALYSIS TREATMENT JOEL HIS PERMACATHETER FOR DIALYSIS ,DONE . UPDATE OF PT STATUS , ..REGARDING PLAN OF CARE. AND OF HIS DISCHARGE PLAN
--- NOTE | 2020-01-13 14:40 | NUR ---
DR. ROMERO HERE AND UPDATE OF . [facility]. REGARDING FOLLOWUP HIS RT FOOT FOR CIRCULATION. . DR. ROMERO STATED TO LET DR. ESPINOZA KNOW OF THE ISSUES , REGARDING DR. LLAMAS IS UNABLE TO DO . PROCEDURE. TO HIS RT LEG FOR CIRCULATION ASSESSMENT . UNTIL SATURDAY. DR. ROMERO STATED TO CALL CALL . DR ESPINOZA REGARDING . CARE.
[2020-01-13 16:00] VITALS: BP 112/70
--- NOTE | 2020-01-13 16:20 | NUR ---
DR. LLAMAS WAS CALLED AND UPDATE ,STATUS REGARDING PENDING DR ESPINOZA DECISION . REGARDING HIS RT LEG CIRCULATION . CARE. STATED THAT IT WAS FINE, BUT IF NEEDED AND PT STAYS UNTIL SATURDAY TO CALL HIM, REGARDING STATUS
[2020-01-13 19:46] VITALS: BP 121/73
--- NOTE | 2020-01-13 20:45 | NUR ---
Wound Vac Dr Vazquez on floor assessing patient, informed him if he wanted wound vac to be changed today. Dr Vazquez stated that wound vac was working perfectly no need to change at this time.
[2020-01-13 23:37] VITALS: BP 139/84
[2020-01-14] VITALS (9 sets, daily range): BP systolic 120–157; BP diastolic 65–90
[2020-01-14 06:07] LABS: HEMATOCRIT 23.8 % (42-54); MEAN CORPUSCULAR HEMOGLOBIN 28.4 pg (27.0-33.0); MEAN CORPUSCULAR HGB CONC 33.6 g/dL (32.0-36.0); MEAN CORPUSCULAR VOLUME 84.4 fL (79-99); RED BLOOD CELL COUNT(AUTO) 2.82 MIL/uL (4.50-6.20); WHITE BLOOD COUNT (AUTO) 7.1 K/uL (4.8-10.8)
[2020-01-14] MEDS: INSULIN R PO SS1 SQ SCH ×4 (06:20→21:00)
[2020-01-14 06:30] LABS: CREATININE 5.9 mg/dL (0.5-1.5); PHOSPHORUS 5.4 mg/dL (2.5-4.9); POTASSIUM 3.7 mmol/L (3.5-5.1)
[2020-01-14] MEDS ORDERED: SODIUM CHLORIDE 0.9% 1000ML 1,000 ML IV SCH (08:59)
[2020-01-14] MEDS: Vitamin B Complex/Vit C/Folic Acid PO SCH (09:00)
[2020-01-14] MEDS: FAMOTIDINE 20MG TAB 20 MG TAB PO SCH (09:00)
[2020-01-14] MEDS: ASPIRIN 81MG TAB.CHEW PO SCH (09:30)
[2020-01-14] MEDS ORDERED: ATORVASTATIN CALCIUM 20 MG TABLET PO SCH (09:30)
[2020-01-14] MEDS: ZOSYN 3.375GM+NS 50ML 50 ML IV SCH ×2 (10:09→20:13)
[2020-01-14 11:10] LABS: HEPATITIS Bs ANTIGEN SCREEN P Negative (Negative)
[2020-01-14] MEDS ORDERED: HEPARIN SODIUM 1000UNIT/ML 10ML VIAL ONE (13:46)
[2020-01-14] MEDS ORDERED: LIDOCAINE HCL 2% 20ML ONE (13:46)
[2020-01-14] MEDS ORDERED: IODIXANOL 320 MG/ML 100 ML VIAL ONE ×3 (13:46→16:34)
[2020-01-14] MEDS ORDERED: NITROGLYCERIN 2 MG/VIAL VIAL IV ONE (14:40)
[2020-01-14] MEDS ORDERED: MIDAZOLAM HCL 1 MG/ML 2ML VIAL ONE (14:43)
[2020-01-14] MEDS ORDERED: FENTANYL CITRATE PF 50 MCG/1 ML 2ML VIAL ONE (14:43)
[2020-01-14] MEDS: SODIUM POLYSTYRENE SULFONATE 15 GM/60 ML ML PO SCH (14:48)
[2020-01-14] MEDS ORDERED: CLOPIDOGREL BISULFATE 300 MG TAB ONE (15:10)
[2020-01-14] MEDS ORDERED: ASPIRIN 325MG EC TAB 325 MG TABLET.DR PO ONE (15:12)
[2020-01-14] MEDS ORDERED: NICARDIPINE HCL 25 MG/10 ML ML IV ONE (15:13)
[2020-01-15] VITALS (7 sets, daily range): BP systolic 130–157; BP diastolic 73–98
[2020-01-15 04:56] LABS: HEMATOCRIT 23.8 % (42-54); MEAN CORPUSCULAR HEMOGLOBIN 27.9 pg (27.0-33.0); MEAN CORPUSCULAR HGB CONC 32.8 g/dL (32.0-36.0); RED BLOOD CELL COUNT(AUTO) 2.8 MIL/uL (4.50-6.20); WHITE BLOOD COUNT (AUTO) 6.4 K/uL (4.8-10.8)
[2020-01-15 05:13] LABS: CREATININE 7.5 mg/dL (0.5-1.5); POTASSIUM 4.1 mmol/L (3.5-5.1)
[2020-01-15] MEDS: INSULIN R PO SS1 SQ SCH ×3 (06:08→22:00)
[2020-01-15] MEDS: ZOSYN 3.375GM+NS 50ML 50 ML IV SCH ×2 (09:00→21:46)
[2020-01-15] MEDS: ASPIRIN 81MG TAB.CHEW PO SCH (14:17)
[2020-01-15] MEDS: CLOPIDOGREL BISULFATE 75 MG TAB PO SCH (14:17)
[2020-01-15] MEDS: FAMOTIDINE 20MG TAB 20 MG TAB PO SCH (14:17)
[2020-01-15] MEDS: Vitamin B Complex/Vit C/Folic Acid PO SCH (14:17)
--- NOTE | 2020-01-15 15:18 | NUR ---
CM NOTE discussed dc planning with dr vaca, states pt needs setup at [facility]. and plan is for dr ocasio to provide wound care orders for HH, and wound vac, and determine if pt will be on iv or PO antibiotics, and /or if can be given at HD center once setup. orders received. updated primary nurse Karri on above , wound vac order form on chart for signature.
[2020-01-15] MEDS: SODIUM POLYSTYRENE SULFONATE 15 GM/60 ML ML PO SCH (15:45)
--- NOTE | 2020-01-15 16:22 | NUR ---
RD UPDATE Pt s/p successful revascularization, as per EMR. Pt tolerating Renal Dialysis Diet, s/p Hemodialysis with no report of GI distress, Po intake at 75-100%. Pt with RLE 2+ edema. R-Heel wound. Altered renal labs. Recommend continue Renal Dialysis diet order. Hemodialysis-Vegetarian Education left in Pt chart per Isolation protocol Recommend Zeus BID, 500mg Vitamin C, 220mg Zinc Sulfate for wound healing support. RD to continue to monitor. Please notify as additional nutrition concerns arise. Thank you.
--- NOTE | 2020-01-15 16:27 | NUR ---
NUTRITION EDUCATION Renal Dialysis Nutrition education provided. Placed in Pt chart per Isolation protocol. RD to follow up. Addendum: 01/15/20 at [address] RD Amended: Links added.
[2020-01-15] MEDS: ATORVASTATIN CALCIUM 20 MG TABLET PO SCH (21:47)
[2020-01-15] MEDS: EPOETIN ALFA 10,000 UNIT/ML VIAL SQ SCH (21:47)
[2020-01-16 04:15] VITALS: BP 115/76
[2020-01-16 04:59] LABS: HEMATOCRIT 23.7 % (42-54); MEAN CORPUSCULAR HEMOGLOBIN 28.9 pg (27.0-33.0); MEAN CORPUSCULAR HGB CONC 33.8 g/dL (32.0-36.0); MEAN CORPUSCULAR VOLUME 85.6 fL (79-99); RED BLOOD CELL COUNT(AUTO) 2.77 MIL/uL (4.50-6.20); RED CELL DISTRIBUTION WIDTH 13.8 % (11.0-15.5); WHITE BLOOD COUNT (AUTO) 7.8 K/uL (4.8-10.8)
[2020-01-16 05:23] LABS: CREATININE 6.3 mg/dL (0.5-1.5); PHOSPHORUS 4.9 mg/dL (2.5-4.9); POTASSIUM 3.9 mmol/L (3.5-5.1)
[2020-01-16] MEDS: INSULIN R PO SS1 SQ SCH ×2 (06:52→21:46)
[2020-01-16 07:00] VITALS: BP 136/80
[2020-01-16] MEDS: CLOPIDOGREL BISULFATE 75 MG TAB PO SCH (10:28)
[2020-01-16] MEDS: FAMOTIDINE 20MG TAB 20 MG TAB PO SCH (10:28)
[2020-01-16] MEDS: ZOSYN 3.375GM+NS 50ML 50 ML IV SCH ×2 (10:28→21:57)
[2020-01-16] MEDS: Vitamin B Complex/Vit C/Folic Acid PO SCH (10:29)
[2020-01-16] MEDS: ASPIRIN 81MG TAB.CHEW PO SCH (10:29)
[2020-01-16 11:00] VITALS: BP 116/71
[2020-01-16 15:00] VITALS: BP 144/79
--- NOTE | 2020-01-16 15:21 | NUR ---
cm note referral faxed to local [facility] and also to [facility] for admisions, spoke to carl at local office, will followup with property management coordinator on saturday. also left message with [facility] to confirm receipt.
[2020-01-16 19:29] VITALS: BP 138/78
[2020-01-16] MEDS: ATORVASTATIN CALCIUM 20 MG TABLET PO SCH (21:57)
[2020-01-16] MEDS: EPOETIN ALFA 10,000 UNIT/ML VIAL SQ SCH (21:57)
[2020-01-16 23:18] VITALS: BP 137/81
[2020-01-17 03:49] VITALS: BP 135/79
[2020-01-17] MEDS: INSULIN R PO SS1 SQ SCH ×4 (05:29→21:48)
[2020-01-17 07:00] VITALS: BP 133/65
[2020-01-17] MEDS: Vitamin B Complex/Vit C/Folic Acid PO SCH (08:28)
[2020-01-17] MEDS: FAMOTIDINE 20MG TAB 20 MG TAB PO SCH (08:28)
[2020-01-17] MEDS: CLOPIDOGREL BISULFATE 75 MG TAB PO SCH (08:29)
[2020-01-17] MEDS: ASPIRIN 81MG TAB.CHEW PO SCH (08:29)
[2020-01-17] MEDS: ZOSYN 3.375GM+NS 50ML 50 ML IV SCH ×2 (08:29→21:48)
[2020-01-17 11:00] VITALS: BP 156/87
[2020-01-17 16:00] VITALS: BP 151/82
[2020-01-17 19:01] VITALS: BP 153/91
[2020-01-17] MEDS: ATORVASTATIN CALCIUM 20 MG TABLET PO SCH (21:46)
[2020-01-17] MEDS: EPOETIN ALFA 10,000 UNIT/ML VIAL SQ SCH (21:47)
[2020-01-17 23:16] VITALS: BP 150/87
[2020-01-18] VITALS (11 sets, daily range): BP systolic 111–157; BP diastolic 70–83
[2020-01-18 05:24] LABS: BASOPHILS % (AUTO) 0.6 % (0.0-5.0); HEMATOCRIT 25.7 % (42-54); LYMPHOCYTES % (AUTO) 15.8 % (21.0-51.0); MEAN CORPUSCULAR HEMOGLOBIN 28.5 pg (27.0-33.0); MEAN CORPUSCULAR HGB CONC 33.1 g/dL (32.0-36.0); MEAN CORPUSCULAR VOLUME 86.2 fL (79-99); NEUTROPHILS % (AUTO) 72.3 % (40.0-77.0); PLATELET COUNT (AUTO) 271 K/uL (130-400); RED BLOOD CELL COUNT(AUTO) 2.98 MIL/uL (4.50-6.20); RED CELL DISTRIBUTION WIDTH 13.9 % (11.0-15.5); WHITE BLOOD COUNT (AUTO) 7.2 K/uL (4.8-10.8)
[2020-01-18 05:30] LABS: INR 1.03 (0.85-1.15); PARTIAL THROMBOPLASTIN TIME 29.3 SEC (26.3-35.5); PROTHROMBIN TIME 11.1 SEC (9.6-11.6)
[2020-01-18 05:39] LABS: PHOSPHORUS 6.5 mg/dL (2.5-4.9); POTASSIUM 3.8 mmol/L (3.5-5.1)
[2020-01-18] MEDS: INSULIN R PO SS1 SQ SCH ×4 (05:41→20:57)
[2020-01-18] MEDS: FAMOTIDINE 20MG TAB 20 MG TAB PO SCH (09:00)
[2020-01-18] MEDS: ASPIRIN 81MG TAB.CHEW PO SCH (09:00)
[2020-01-18] MEDS: Vitamin B Complex/Vit C/Folic Acid PO SCH (09:00)
[2020-01-18] MEDS: CLOPIDOGREL BISULFATE 75 MG TAB PO SCH (09:00)
[2020-01-18] MEDS ORDERED: CEFAZOLIN SODIUM 1 GM VIAL IVP PRN (13:00)
--- NOTE | 2020-01-18 14:08 | NUR ---
CONSULT: NOTIFIED ROLANDO MARINELLI CRNA OF PATIENTS NPO STATUS AT 12:00 ON 01/18/20 OF [facility], NO ORDERS GIVEN. OK TO PROCEED WITH SURGERY.
--- NOTE | 2020-01-18 14:09 | NUR ---
POTENTIAL FOR INFECTION: CLIPPED LT ARM PER ANNIE ZHENG.
--- NOTE | 2020-01-18 14:17 | NUR ---
CM Note: Jaret Kelly pending approval and chair time CM spoke to Eligio nunes/Jaret Mendoza, verbalized received clinicals and lab, currently working on approval and chair time. Aware pt pending left AV Fistula placement today/tomorrow. Pt pending approval and chair time at this time. Primary nurse aware. CM to cont to follow up.
--- NOTE | 2020-01-18 14:19 | NUR ---
CM Note: Pending [facility] and [facility] consent and set up CM spoke to pt to discussed MD order for HH and [facility], pt verbalized he is busy at the moment, requested for CM to come back tomorrow. Pt pending to consent for HH and [facility] woundvac. MD pending to sign [facility] woundvac script, flagged in chart. Primary nurse aware. CM to cont to follow up.
[2020-01-18] MEDS ORDERED: ROPIVACAINE 0.5% 5MG/ML 30ML IJ ONE (14:23)
[2020-01-18] MEDS ORDERED: METOCLOPRAMIDE 10 MG/2 ML VIAL ONE (14:28)
[2020-01-18] MEDS ORDERED: FAMOTIDINE/PF 20 MG/2 ML VIAL IV ONE (14:28)
[2020-01-18] MEDS ORDERED: FAMOTIDINE/PF 20 MG/2 ML VIAL IV SCH (14:30)
[2020-01-18] MEDS ORDERED: METOCLOPRAMIDE 10 MG/2 ML VIAL IVP SCH (14:30)
[2020-01-18] MEDS ORDERED: CITRIC ACID/SODIUM CITRATE 30 ML UDCUP PO SCH (14:30)
[2020-01-18] MEDS: CITRIC ACID/SODIUM CITRATE 30 ML UDCUP ONE ×2 (14:43→15:00)
[2020-01-18] MEDS ORDERED: GLYCOPYRROLATE 1 MG/5 ML SYRINGE ONE (14:46)
[2020-01-18] MEDS ORDERED: DEXAMETHASONE SOD PHOSPHATE 10MG/ML 1ML VIAL ONE (14:46)
[2020-01-18] MEDS ORDERED: MIDAZOLAM HCL 1 MG/ML 2ML VIAL ONE (14:46)
[2020-01-18] MEDS ORDERED: NEOSTIGMINE 5MG/5ML SYR IV ONE (14:46)
[2020-01-18] MEDS ORDERED: SUCCINYLCHOLINE 200MG/10ML SYR ONE (14:46)
[2020-01-18] MEDS ORDERED: PROPOFOL 10 MG/ML 20ML VIAL IV ONE (14:46)
[2020-01-18] MEDS ORDERED: LIDOCAINE PF 2% 5ML ABBOJECT ONE (14:46)
[2020-01-18] MEDS ORDERED: ONDANSETRON HCL 4 MG/2 ML VIAL ONE (14:47)
[2020-01-18] MEDS ORDERED: ROCURONIUM 10MG/1ML SYR 10 MG/ML ML ONE (14:47)
[2020-01-18] MEDS ORDERED: FENTANYL CITRATE PF 50 MCG/1 ML 2ML VIAL ONE (14:47)
[2020-01-18] MEDS ORDERED: CEFAZOLIN SODIUM 1 GM VIAL ONE ×3 (15:08→15:46)
[2020-01-18] MEDS ORDERED: TRAMADOL HCL 50 MG TABLET PO PRN ×2 (16:45)
[2020-01-18] MEDS: ATORVASTATIN CALCIUM 20 MG TABLET PO SCH (20:09)
[2020-01-18] MEDS: EPOETIN ALFA 10,000 UNIT/ML VIAL SQ SCH (20:09)
--- NOTE | 2020-01-18 21:30 | NUR ---
PT HAD HD, 1.5 LITERS REMOVED. DID HAVE AV FISTULA TO LEFT ARM PLACED TODAY. PT IS SORE, HAS WEAK PULSE TO LEFT ARM. NUMB, AND UNABLE TO MOVE ARM. INFORMED PROCEDURE NURSES. IS AWARE ARM WILL FEEL LIKE THIS FOR 20HRS. PT OTHERWISE HAS NO CONCERNS.
[2020-01-19 00:16] VITALS: BP 151/78
[2020-01-19 04:16] VITALS: BP 151/87
[2020-01-19 05:56] LABS: HEMATOCRIT 22.4 % (42-54); MEAN CORPUSCULAR HEMOGLOBIN 28.4 pg (27.0-33.0); MEAN CORPUSCULAR HGB CONC 33.5 g/dL (32.0-36.0); MEAN CORPUSCULAR VOLUME 84.8 fL (79-99); RED BLOOD CELL COUNT(AUTO) 2.64 MIL/uL (4.50-6.20); WHITE BLOOD COUNT (AUTO) 7.1 K/uL (4.8-10.8)
[2020-01-19] MEDS: INSULIN R PO SS1 SQ SCH ×4 (05:58→21:32)
[2020-01-19 06:30] LABS: POTASSIUM 3.8 mmol/L (3.5-5.1)
[2020-01-19 07:54] VITALS: BP 151/84
[2020-01-19] MEDS: ASPIRIN 81MG TAB.CHEW PO SCH (08:53)
[2020-01-19] MEDS: CLOPIDOGREL BISULFATE 75 MG TAB PO SCH (08:54)
[2020-01-19] MEDS: FAMOTIDINE 20MG TAB 20 MG TAB PO SCH (08:54)
[2020-01-19] MEDS: Vitamin B Complex/Vit C/Folic Acid PO SCH (08:54)
--- NOTE | 2020-01-19 11:15 | NUR ---
CM Note: [facility] pending approval and delivery CM spoke to pt agreeable now for [facility] for home, PREETHI signed for [facility]. Faxed order, clinicals to [facility] and [facility] woundvac, confirmation received. Pt pending approval for HH and DME. Primary nurse aware. CM to cont to follow up.
[2020-01-19 11:37] VITALS: BP 132/77
--- NOTE | 2020-01-19 15:11 | NUR ---
CM Note: Jaret Kelly approval and chair time TTS @ 3:45pm CM spoke to Bony nunes/Jaret Mendoza, pt has approval and chair time TTS @3:45pm. Pt made aware of approval, given instructions, to arrived at the center 30min prior to chair time. Pt made aware currently pending approval for [facility], pending approval and delivery for [facility] woundvac. Primary nurse aware. CM to cont to follow up.
--- NOTE | 2020-01-19 15:27 | NUR ---
CM Note: [facility] Mondragon pending approval CM spoke to Fannie nunes/[facility] Mondragon , received request this morning, currently working on approval, aware dcp once approved and [facility] received. Pt pending approval at this time. Primary nurse aware. CM to cont to follow up.
--- NOTE | 2020-01-19 15:28 | NUR ---
CM Note: [facility] pending approval and delivery for woundvac CM spoke to [facility] rep , received request, currently working on approval. Pt pending approval and delivery of woundvac in room. Primary nurse aware. CM to cont to follow up.
[2020-01-19 15:38] VITALS: BP 125/74
[2020-01-19 19:48] VITALS: BP 92/59
[2020-01-19] MEDS: ATORVASTATIN CALCIUM 20 MG TABLET PO SCH (21:27)
[2020-01-19] MEDS: EPOETIN ALFA 10,000 UNIT/ML VIAL SQ SCH (21:27)
[2020-01-20] VITALS: BP 127/73
[2020-01-20 04:00] VITALS: BP 137/77
[2020-01-20 05:08] LABS: HEMATOCRIT 22.2 % (42-54); MEAN CORPUSCULAR HEMOGLOBIN 27.8 pg (27.0-33.0); MEAN CORPUSCULAR HGB CONC 32.4 g/dL (32.0-36.0); MEAN CORPUSCULAR VOLUME 85.7 fL (79-99); RED BLOOD CELL COUNT(AUTO) 2.59 MIL/uL (4.50-6.20); WHITE BLOOD COUNT (AUTO) 6.4 K/uL (4.8-10.8)
[2020-01-20 05:15] LABS: CREATININE 5.9 mg/dL (0.5-1.5); POTASSIUM 3.6 mmol/L (3.5-5.1)
[2020-01-20] MEDS: INSULIN R PO SS1 SQ SCH ×3 (06:01→16:30)
--- NOTE | 2020-01-20 06:47 | NUR ---
wound vac issues wound vac began beeping around midnight with error messages including "blockage", "low pressure" and "negative pressure" tubing checked for kinks, checked for adequate seal and all clamps are open. canister changed total of 350ml in canister had two other rns check and attempt to troubleshoot wound vac and it was determined that it was either positional or vac machine wound vac machine changed out. beeping resolved for about 15 mins and began again. dr ocasio called to his cell phone around 0435 no answer , vm left called him again at 0600 returned call informed him of last time wound vac was changed 01/10 and output of 50ml for the day order to turn off machine and remove sponge and apply saline gauze dressing and have house sup notify wound care to change woun vac dressing
[2020-01-20 07:30] VITALS: BP 130/76
[2020-01-20] MEDS: CLOPIDOGREL BISULFATE 75 MG TAB PO SCH (09:50)
[2020-01-20] MEDS: Vitamin B Complex/Vit C/Folic Acid PO SCH (09:50)
[2020-01-20] MEDS: FAMOTIDINE 20MG TAB 20 MG TAB PO SCH (09:50)
[2020-01-20] MEDS: ASPIRIN 81MG TAB.CHEW PO SCH (09:52)
--- NOTE | 2020-01-20 10:05 | NUR ---
DR. JOSEMANUEL LEMUS MD PAGED REGARDING IV ANTIBIOTIC DISCONTINUED.
[2020-01-20 11:00] VITALS: BP 133/74
--- NOTE | 2020-01-20 11:42 | NUR ---
CM Note: [facility] woundvac CM spoke to Aubrey nunes/[facility], received request yesterday, currently working on approval and delivery for woundvac. Aware dcp once equipments delivered. Pt pending approval and delivery. Primary nurse aware. CM to cont to follow up.
--- NOTE | 2020-01-20 11:44 | NUR ---
LIVAN Note: [facility] pending approval CM spoke to November/Alejandro FERREIRA, currently working on pt. Pt pending approval at this time. Primary nurse aware. CM to cont to follow up.
--- NOTE | 2020-01-20 11:50 | NUR ---
CM Note: [facility] wound[facility] approval pending delivery CM spoke to [facility] w/[facility] woundvac, pt has approval, will deliver equipments today. Security given heads up to allow rep to deliver equipment for pt. Primary nurse aware. CM to cont to follow up.
--- NOTE | 2020-01-20 13:30 | NUR ---
CM Note: [facility] woundvac delivered in room; [facility] approved. CM verified [facility] woundvac delivered in pt's room. CM spoke to November/[facility], pt has approval, will see pt on Saturday. Primary nurse aware. CM to cont to follow up.
--- NOTE | 2020-01-20 13:40 | NUR ---
REPAGED DR. ABERNATHY
[2020-01-20] MEDS ORDERED: ASPI-1005 PO (14:25)
[2020-01-20] MEDS ORDERED: ATOR20TA65 PO (14:25)
[2020-01-20] MEDS ORDERED: LEVO500T2 PO (14:25)
[2020-01-20] MEDS ORDERED: CLOP75TA14 PO (14:25)
[2020-01-20] MEDS ORDERED: FAMO20TA8 PO (14:25)
[2020-01-20] MEDS ORDERED: Folic Acid/Vitamin B Comp W-C PO (14:25)
[2020-01-20] MEDS ORDERED: LEVOFLOXACIN 500 MG/D5W 100 ML 100 ML IV SCH (14:45)
[2020-01-20 16:00] VITALS: BP 134/70
[2020-01-20] MEDS ORDERED: LEVOFLOXACIN 500 MG/D5W 100 ML 100 ML IV ONE (16:00)
--- NOTE | 2020-01-20 16:30 | NUR ---
WOUND VAC DRESSING CHANGE WOUND CARE NURSE ARRIVED TO EVALUATION RIGHT HEEL WOUND. WOUND VAC DRESSING CHANGE PERFORMED, UPDATED RIGHT HEEL WOUND PHOTOGRAPH FOR PATIENT CHART AND APPLIED NEW [facility] WOUND VAC IN PLACE.
--- NOTE | 2020-01-20 16:45 | NUR ---
[facility] NURSE REPORT GIVEN TO NURSE LAZAR OF [facility]. INFORMED OF PATIENT RX, RIGHT HEEL WOUND VAC TO BE CHANGED MWF, PATIENT TO CONTINUE TTS HEMODIALYSIS TREATMENT AT [facility], AND PATIENTS SCHEDULED FOLLOW-UP APPOINTMENTS.
--- NOTE | 2020-01-20 17:00 | NUR ---
DISCHARGE DISCHARGE TEACHING PROVIDED REGARDING RX, SCHEDULED FOLLOW UP APPOINTMENTS WITH DR. ABERNATHY, DR. BORREGO, AND DR. VILLATORO. PATIENT INFORMING 1-2 WEEKS F/U WITH DR. EDWARDS PENDING TO BE SCHEDULED. PATIENT INFORMED OF APPOINTMENT AT [facility] TOMORROW AT 3:45 PM. EDUCATED ON HOME CARE CONSIDERATIONS FOR WOUND VAC THERAPY AND HEMODIALYSIS DIET AT CARE. REMOVED 20G IVX2 FROM RIGHT FA, CATHETER TIPS INTACT. PATIENT VERBALIZED UNDERSTANDING OF DISCHARGE TEACHING. PATIENT TO BE DISCHARGED WITH RIGHT HEEL WOUND VAC IN PLACE.
--- NOTE | 2020-01-21 09:46 | NUR ---
[facility] CONSULT PATIENT ASSESSED REQUESTED: ASSISSTED WITH WOUND VAC PLACEMENT PRIOR TO PATIENT BEING DISCHARGED; CURRENT WOUND VAC ORDERS IN CHART. Addendum: 01/21/20 at 0949 by BLAZE LEWIS LVN Amended: Links added.
== END 2020-01-20 19:00 | disposition home health service (06) | DRG 710 ==
LOC: EDH 18:12 → EDHIP 18:13 → 4CH 01-07 22:02 → 4DH 01-14 11:14
PROVIDERS: ADMIT Internal Medicine Nephrology; ATTEND Internal Medicine Nephrology
PROC: 0JBQ0ZZ Excision of Right Foot Subcutaneous Tissue and Fascia, Open Approach (ICD-10-PCS; 2020-01-08)
PROC: 5A1D70Z Performance of Urinary Filtration, Intermittent, Less than 6 Hours Per Day (ICD-10-PCS; 2020-01-11)
PROC: 5A1D70Z Performance of Urinary Filtration, Intermittent, Less than 6 Hours Per Day (ICD-10-PCS; 2020-01-12)
PROC: 0JH63XZ Insertion of Tunneled Vascular Access Device into Chest Subcutaneous Tissue and Fascia, Percutaneous Approach (ICD-10-PCS; 2020-01-12)
PROC: 02H633Z Insertion of Infusion Device into Right Atrium, Percutaneous Approach (ICD-10-PCS; 2020-01-12)
PROC: B548ZZA Ultrasonography of Superior Vena Cava, Guidance (ICD-10-PCS; 2020-01-12)
PROC: 5A1D70Z Performance of Urinary Filtration, Intermittent, Less than 6 Hours Per Day (ICD-10-PCS; 2020-01-13)
PROC: 047P3ZZ Dilation of Right Anterior Tibial Artery, Percutaneous Approach (ICD-10-PCS; 2020-01-14)
PROC: B41F1ZZ Fluoroscopy of Right Lower Extremity Arteries using Low Osmolar Contrast (ICD-10-PCS; 2020-01-14)
PROC: B4101ZZ Fluoroscopy of Abdominal Aorta using Low Osmolar Contrast (ICD-10-PCS; 2020-01-14)
PROC: 04CP3ZZ Extirpation of Matter from Right Anterior Tibial Artery, Percutaneous Approach (ICD-10-PCS; 2020-01-14)
PROC: 5A1D70Z Performance of Urinary Filtration, Intermittent, Less than 6 Hours Per Day (ICD-10-PCS; 2020-01-15)
PROC: 031C0ZF Bypass Left Radial Artery to Lower Arm Vein, Open Approach (ICD-10-PCS; 2020-01-18)
PROC: 3E0T3BZ Introduction of Anesthetic Agent into Peripheral Nerves and Plexi, Percutaneous Approach (ICD-10-PCS; 2020-01-18)
PROC: 5A1D70Z Performance of Urinary Filtration, Intermittent, Less than 6 Hours Per Day (ICD-10-PCS; 2020-01-18)
PROC: 30233N1 Transfusion of Nonautologous Red Blood Cells into Peripheral Vein, Percutaneous Approach (ICD-10-PCS; principal; 2020-01-18 15:17)
PROC: 5A1D70Z Performance of Urinary Filtration, Intermittent, Less than 6 Hours Per Day (ICD-10-PCS; 2020-01-19)
DX: A41.9 Sepsis, unspecified organism (principal); M72.6 Necrotizing fasciitis; E87.2 Acidosis; A48.0 Gas gangrene; I12.0 Hypertensive chronic kidney disease with stage 5 chronic kidney disease or end stage renal disease; N17.9 Acute kidney failure, unspecified; N18.6 End stage renal disease; L03.115 Cellulitis of right lower limb; E11.52 Type 2 diabetes mellitus with diabetic peripheral angiopathy with gangrene; E87.1 Hypo-osmolality and hyponatremia; S91.331A Puncture wound without foreign body, right foot, initial encounter; E11.22 Type 2 diabetes mellitus with diabetic chronic kidney disease; D64.9 Anemia, unspecified; E87.5 Hyperkalemia; E11.621 Type 2 diabetes mellitus with foot ulcer; E11.622 Type 2 diabetes mellitus with other skin ulcer; E11.69 Type 2 diabetes mellitus with other specified complication; E78.5 Hyperlipidemia, unspecified; J98.11 Atelectasis; L60.0 Ingrowing nail; L97.409 Non-pressure chronic ulcer of unspecified heel and midfoot with unspecified severity; M86.9 Osteomyelitis, unspecified; W45.0XXA Nail entering through skin, initial encounter; Z99.2 Dependence on renal dialysis; Z91.19 Patient's noncompliance with other medical treatment and regimen; Z91.15 Patient's noncompliance with renal dialysis; Z83.3 Family history of diabetes mellitus; Z82.49 Family history of ischemic heart disease and other diseases of the circulatory system; Y93.89 Activity, other specified; Y92.89 Other specified places as the place of occurrence of the external cause; Y99.8 Other external cause status
CPT/HCPCS: 36415; 36430; 36558; 37229; 71045; 73630; 73718; 75716; 75774; 76770; 77001; 80048; 80053; 80061; 81001; 82040; 82550; 82565; 82728; 82948; 83036; 83540; 83550; 83605; 83735; 83874; 84100; 84145; 84484; 84520; 84550; 85014; 85018; 85025; 85027; 85347; 85610; 85730; 86701; 86704; 86706; 86850; 86900; 86901; 86922; 87040; 87070; 87076; 87077; 87088; 87186; 87205; 87340; 87390; 87520; 88304; 90935; 93005; 93925; 93970; 97039; 99156; 99157; C1724; C1750; C1760; C1769; C1893; C1894; G0378; J0330; J0690; J0885; J1100; J1644; J1815; J1956; J2001; J2250; J2405; J2543; J2704; J2710; J2765; J2795; J3010; J3370; J3490; J7030; J7050; P9016; Q9967

== ENCOUNTER 2020-03-08 16:47 | Inpatient (IN) | payer MEDICAID ==
[~2020-03-08] VITALS: Ht 170.2 cm; Wt 107.6 kg
[~2020-03-08 16:47] MED LIST changes: -AMLO5TAB4 PO; +ASPI-1005 PO; +ATOR20TA65 PO; +CLOP75TA14 PO; +FAMO20TA8 PO; +Folic Acid/Vitamin B Comp W-C PO; -HUM10VIA6 SQ; +INSU10VI3 SQ; +LEVO500T2 PO; +LISI-613 PO
[2020-03-08 17:12] LABS: EOSINOPHILS % (AUTO) 0.1 % (0.0-8.0); HEMATOCRIT 32.7 % (42-54); LYMPHOCYTES % (AUTO) 9.8 % (21.0-51.0); MEAN CORPUSCULAR HEMOGLOBIN 28.9 pg (27.0-33.0); MEAN CORPUSCULAR HGB CONC 34.6 g/dL (32.0-36.0); MEAN CORPUSCULAR VOLUME 83.6 fL (79-99); MONOCYTES % (AUTO) 6.4 % (3.0-13.0); NEUTROPHILS % (AUTO) 83.3 % (40.0-77.0); PLATELET COUNT (AUTO) 249 K/uL (130-400); RED BLOOD CELL COUNT(AUTO) 3.91 MIL/uL (4.50-6.20); RED CELL DISTRIBUTION WIDTH 14.3 % (11.0-15.5)
[2020-03-08 17:25] LABS: INR 0.92 (0.85-1.15); PARTIAL THROMBOPLASTIN TIME 34.4 SEC (26.3-35.5)
[2020-03-08 17:28] LABS: CREATININE 7.1 mg/dL (0.5-1.5); POTASSIUM 3.8 mmol/L (3.5-5.1)
[2020-03-08 17:39] LABS: ALBUMIN 3.1 g/dL (3.5-5.0); BILIRUBIN,TOTAL 0.6 mg/dL (0.2-1.0); TOTAL PROTEIN, SERUM 8.1 g/dL (6.0-8.3); TROPONIN I 0.04 ng/mL (0.00-0.06)
[2020-03-08] MEDS ORDERED: ACETAMINOPHEN EXTRA STRENGTH 500 MG TABLET ONE (17:40)
[2020-03-08 18:30] LABS: BAND NEUTROPHILS % (MANUAL) 14 % (0-2); LYMPHOCYTES % (MANUAL) 10 % (22-44); MAN.DIFF COMMENT-IMPRESSION MANUAL DIFFERENTIAL; MONOCYTES % (MANUAL) 6 % (2-9); PLATELET MORPHOLOGY COMMENT ADEQUATE; SEGMENTED NEUTROPHILS % 70 % (40-70)
[2020-03-08] MEDS ORDERED: AZITHROMYCIN 500MG+NS 250ML 250 ML IV ONE (18:39)
[2020-03-08] MEDS ORDERED: CEFTRIAXONE SODIUM 1 GM ONE (18:40)
[2020-03-08] MEDS ORDERED: ENOXAPARIN SODIUM 30 MG/0.3 ML SQ ONE (21:16)
[2020-03-08] MEDS ORDERED: GLUCAGON 1MG KIT 1 MG ML IM PRN (21:30)
[2020-03-08] MEDS ORDERED: DEXTROSE 50%-WATER 50 ML DISP.SYRIN IV PRN (21:30)
[2020-03-09] MEDS ORDERED: ACETAMINOPHEN EXTRA STRENGTH 500 MG TABLET ONE (01:58)
[2020-03-09 06:25] LABS: HEMATOCRIT 31.2 % (42-54); MEAN CORPUSCULAR HEMOGLOBIN 28.8 pg (27.0-33.0); MEAN CORPUSCULAR HGB CONC 34.3 g/dL (32.0-36.0); MEAN CORPUSCULAR VOLUME 84.1 fL (79-99); RED BLOOD CELL COUNT(AUTO) 3.71 MIL/uL (4.50-6.20); RED CELL DISTRIBUTION WIDTH 14.3 % (11.0-15.5); WHITE BLOOD COUNT (AUTO) 6.7 K/uL (4.8-10.8)
[2020-03-09 06:28] LABS: APPEARANCE,URINE CLEAR (CLEAR); BILIRUBIN,URINE NEGATIVE (NEGATIVE); COLOR,URINE YELLOW (YELLOW); GLUCOSE, URINE (UA) 250 mg/dL (NEGATIVE); KETONES,URINE NEGATIVE (NEGATIVE); LEUKOCYTE ESTERASE ,URINE NEGATIVE (NEGATIVE); NITRATE,URINE NEGATIVE (NEGATIVE); OCCULT BLOOD,URINE NEGATIVE (NEGATIVE); PROTEIN,URINE >=300 mg/dL (NEGATIVE); UROBILINOGEN,URINE 0.2 mg/dL (0.2-1.0)
[2020-03-09 06:33] LABS: CREATININE 5.1 mg/dL (0.5-1.5); POTASSIUM 3.5 mmol/L (3.5-5.1)
[2020-03-09 07:17] LABS: BACTERIA,URINE Rare /HPF (None Seen); RBC,URINE 0-1 /HPF (0-1); SQUAMOUS EPITHELIAL CELL,UR Rare /HPF (0-2); WBC,URINE 0-1 /HPF (0-1)
[2020-03-09] MEDS: INSULIN R PO SS1 SQ SCH ×4 (07:30→21:00)
[2020-03-09] MEDS ORDERED: AZITHROMYCIN 500MG+NS 250ML 250 ML IV ONE (08:35)
[2020-03-09] MEDS ORDERED: ENOXAPARIN SODIUM 30 MG/0.3 ML SQ ONE (08:35)
[2020-03-09] MEDS ORDERED: PANTOPRAZOLE SODIUM 40 MG TABLET.DR ONE (08:36)
[2020-03-09] MEDS: AZITHROMYCIN 500MG+NS 250ML 250 ML IV SCH (08:58)
[2020-03-09] MEDS: PANTOPRAZOLE SODIUM 40 MG TABLET.DR PO SCH (08:58)
[2020-03-09] MEDS: ENOXAPARIN SODIUM 30 MG/0.3 ML SQ SCH (08:59)
--- NOTE | 2020-03-09 12:30 | NUR ---
SPOKE TO DIVORCE SPOUSE JACKIE URRUTIA FOR DC PLANNING. SHE APPEARS ON FACE SHEET PTK AND NOK. CLARIFIED THAT THEY ARE INDEED , BUT WHEN HE BECAME SICK, HE STARTED LIVING AT HER HOME WITH HER AND THEIR MUTUAL SON STATES HE USUALLY DIALYSIS TTS [facility], BUT HAS BEEN DOING TREATMENTS MWF 09/20/ TO [facility]. PATIENT AMBULATES WITH ROLLING WALKER AND HAS A SHOWER CHAIR. NO PROVIDER, SON TRANSPORTS TO HD PHYSICAL ADDRESS UPDATED IN SYSTEM AND FAXED TO REGISTRATION DC PLAN IS HOME, LIVAN TO FOLLOW Addendum: 03/09/20 at 1504 by GREG NASH RN CM Amended: Links added.
[2020-03-09] MEDS ORDERED: ALLO100T PO (17:46)
[2020-03-09] MEDS ORDERED: LISI1TAB29 PO (17:46)
[2020-03-10] VITALS (7 sets, daily range): BP systolic 122–160; BP diastolic 66–91
--- NOTE | 2020-03-10 01:00 | NUR ---
Patient received from ER, via stretcher, denies any discomfort. Dressing to Rt foot D/I, removed to take pics of ulcer. Replaced non adherent dressing, 4x4s, wrapped with kerlix, and meron wrap Pt tolerated procedure well.
--- NOTE | 2020-03-10 03:25 | NUR ---
Patient's temperature of 102.6 oral, Dr. Osman paged via answering service at [phone]. 1769: Dr. Osman returned the call, informed him of patient dx, bloodculture results from the . No new orders just to administer Tylenol for the fever.
[2020-03-10] MEDS: ACETAMINOPHEN 325 MG TAB PO PRN ×2 (03:35→20:22)
[2020-03-10] MEDS ORDERED: FUROSEMIDE 10 MG/ML 2ML VIAL IV SCH (04:30)
[2020-03-10] MEDS ORDERED: NITROGLYCERIN 0.2 MG/HR PATCH TD SCH (04:30)
[2020-03-10] MEDS: INSULIN R PO SS1 SQ SCH ×4 (06:00→20:45)
[2020-03-10 06:36] LABS: HEMATOCRIT 30.4 % (42-54); MEAN CORPUSCULAR HEMOGLOBIN 28.9 pg (27.0-33.0); MEAN CORPUSCULAR HGB CONC 33.9 g/dL (32.0-36.0); MEAN CORPUSCULAR VOLUME 85.4 fL (79-99); RED BLOOD CELL COUNT(AUTO) 3.56 MIL/uL (4.50-6.20); RED CELL DISTRIBUTION WIDTH 14.1 % (11.0-15.5); WHITE BLOOD COUNT (AUTO) 7.6 K/uL (4.8-10.8)
[2020-03-10 06:56] LABS: ALBUMIN 2.7 g/dL (3.5-5.0); BILIRUBIN,TOTAL 0.4 mg/dL (0.2-1.0); CREATININE 7.2 mg/dL (0.5-1.5); POTASSIUM 3.1 mmol/L (3.5-5.1); TOTAL PROTEIN, SERUM 7.7 g/dL (6.0-8.3)
[2020-03-10] MEDS: AZITHROMYCIN 500MG+NS 250ML 250 ML IV SCH (09:52)
[2020-03-10] MEDS: PANTOPRAZOLE SODIUM 40 MG TABLET.DR PO SCH (09:52)
[2020-03-10] MEDS: ENOXAPARIN SODIUM 30 MG/0.3 ML SQ SCH (09:53)
[2020-03-10] MEDS ORDERED: HEPARIN SODIUM 5000UNIT/ML 1ML VIAL ONE (13:17)
[2020-03-11 04:27] VITALS: BP 126/72
[2020-03-11] MEDS: INSULIN R PO SS1 SQ SCH ×4 (05:50→21:00)
[2020-03-11 06:54] LABS: BASOPHILS % (AUTO) 0.2 % (0.0-5.0); HEMATOCRIT 28.6 % (42-54); LYMPHOCYTES % (AUTO) 17.8 % (21.0-51.0); MEAN CORPUSCULAR HEMOGLOBIN 28.6 pg (27.0-33.0); MEAN CORPUSCULAR HGB CONC 33.6 g/dL (32.0-36.0); MEAN CORPUSCULAR VOLUME 85.1 fL (79-99); NEUTROPHILS % (AUTO) 72.8 % (40.0-77.0); PLATELET COUNT (AUTO) 256 K/uL (130-400); RED BLOOD CELL COUNT(AUTO) 3.36 MIL/uL (4.50-6.20); RED CELL DISTRIBUTION WIDTH 14.2 % (11.0-15.5); WHITE BLOOD COUNT (AUTO) 4.8 K/uL (4.8-10.8)
[2020-03-11 07:17] LABS: ALBUMIN 2.5 g/dL (3.5-5.0); BILIRUBIN,TOTAL 0.3 mg/dL (0.2-1.0); PHOSPHORUS 4.2 mg/dL (2.5-4.9); POTASSIUM 3.3 mmol/L (3.5-5.1); TOTAL PROTEIN, SERUM 7.3 g/dL (6.0-8.3)
[2020-03-11 08:40] VITALS: BP 112/44
[2020-03-11] MEDS: PANTOPRAZOLE SODIUM 40 MG TABLET.DR PO SCH (09:00)
[2020-03-11] MEDS: AZITHROMYCIN 500MG+NS 250ML 250 ML IV SCH (09:00)
[2020-03-11] MEDS: ENOXAPARIN SODIUM 30 MG/0.3 ML SQ SCH (09:00)
[2020-03-11 11:22] VITALS: BP 119/65
[2020-03-11] MEDS ORDERED: VANCOMYCIN 1.5 GM in SODIUM CHLORIDE 0.9% 250 ML IV SCH (14:00)
[2020-03-11] MEDS ORDERED: VANCOMYCIN PROTOCOL PER PHARMACY IV SCH (14:00)
[2020-03-11] MEDS ORDERED: PHARMACY COMMUNICATION MISC SCH (14:30)
[2020-03-11 17:02] VITALS: BP 128/63
[2020-03-11 20:20] VITALS: BP 130/68
[2020-03-12] VITALS (7 sets, daily range): BP systolic 115–152; BP diastolic 56–84
[2020-03-12 06:22] LABS: BASOPHILS % (AUTO) 0.4 % (0.0-5.0); EOSINOPHILS % (AUTO) 3.2 % (0.0-8.0); HEMATOCRIT 28.7 % (42-54); LYMPHOCYTES % (AUTO) 18.7 % (21.0-51.0); MEAN CORPUSCULAR HEMOGLOBIN 28.5 pg (27.0-33.0); MEAN CORPUSCULAR HGB CONC 33.8 g/dL (32.0-36.0); MEAN CORPUSCULAR VOLUME 84.4 fL (79-99); MONOCYTES % (AUTO) 10.8 % (3.0-13.0); NEUTROPHILS % (AUTO) 66.5 % (40.0-77.0); PLATELET COUNT (AUTO) 317 K/uL (130-400); WHITE BLOOD COUNT (AUTO) 4.7 K/uL (4.8-10.8)
[2020-03-12] MEDS: INSULIN R PO SS1 SQ SCH ×4 (06:34→21:54)
[2020-03-12 06:39] LABS: CREATININE 7.5 mg/dL (0.5-1.5); POTASSIUM 3.4 mmol/L (3.5-5.1)
[2020-03-12] MEDS ORDERED: COMPOUND IV REFRIGERATED 1 EACH IVSOLN MISC PRN (07:15)
[2020-03-12] MEDS ORDERED: VANCOMYCIN 1.25 GM in SODIUM CHLORIDE 0.9% 250 ML IV SCH (09:00)
[2020-03-12] MEDS: AZITHROMYCIN 500MG+NS 250ML 250 ML IV SCH (09:06)
[2020-03-12] MEDS: PANTOPRAZOLE SODIUM 40 MG TABLET.DR PO SCH (09:06)
[2020-03-12] MEDS: ENOXAPARIN SODIUM 30 MG/0.3 ML SQ SCH (09:07)
[2020-03-12] MEDS ORDERED: HEPARIN SODIUM 5000UNIT/ML 1ML VIAL ONE (12:26)
[2020-03-12] MEDS: EPOETIN ALFA 10,000 UNIT/ML VIAL SQ SCH (17:36)
[2020-03-12] MEDS: HONEY 1 APPL/ML TUBE TP SCH (21:53)
[2020-03-13 03:42] VITALS: BP 144/76
[2020-03-13 06:09] LABS: BASOPHILS % (AUTO) 0.2 % (0.0-5.0); EOSINOPHILS % (AUTO) 3.3 % (0.0-8.0); HEMATOCRIT 27.2 % (42-54); LYMPHOCYTES % (AUTO) 15.3 % (21.0-51.0); MEAN CORPUSCULAR HEMOGLOBIN 28.1 pg (27.0-33.0); MEAN CORPUSCULAR HGB CONC 33.1 g/dL (32.0-36.0); MONOCYTES % (AUTO) 10.7 % (3.0-13.0); NEUTROPHILS % (AUTO) 70.1 % (40.0-77.0); PLATELET COUNT (AUTO) 292 K/uL (130-400); RED CELL DISTRIBUTION WIDTH 13.8 % (11.0-15.5); WHITE BLOOD COUNT (AUTO) 4.9 K/uL (4.8-10.8)
[2020-03-13 06:24] LABS: CREATININE 5.8 mg/dL (0.5-1.5); POTASSIUM 3.5 mmol/L (3.5-5.1)
[2020-03-13] MEDS: INSULIN R PO SS1 SQ SCH ×4 (06:38→21:00)
[2020-03-13] MEDS: AZITHROMYCIN 500MG+NS 250ML 250 ML IV SCH (07:49)
[2020-03-13] MEDS: HONEY 1 APPL/ML TUBE TP SCH (07:54)
[2020-03-13] MEDS: PANTOPRAZOLE SODIUM 40 MG TABLET.DR PO SCH (07:58)
[2020-03-13] MEDS: ENOXAPARIN SODIUM 30 MG/0.3 ML SQ SCH (07:59)
[2020-03-13 08:41] VITALS: BP 128/71
[2020-03-13 11:57] VITALS: BP 128/65
[2020-03-13] MEDS: BENZONATATE 100 MG CAPSULE PO SCH ×2 (16:37→21:26)
[2020-03-13 17:30] VITALS: BP 141/73
[2020-03-13 20:24] VITALS: BP 124/81
--- NOTE | 2020-03-13 21:26 | NUR ---
MEDS DUE MEDS ADMINISTERED, TOLERATED WELL. CALL LIGHT WITHIN REACH. WILL MONITOR PT. Addendum: 03/14/20 at 0243 by EVAN LONDONO RN RN Amended: Links added.
[2020-03-13 23:22] VITALS: BP 130/57
--- NOTE | 2020-03-14 02:00 | NUR ---
ROUNDS PT RESTING WELL, FAIRLY ASLEEP. NO DISTRESS NOTED. KEPT UNDISTURBED FOR NOW. CALL LIGHT WITHIN REACH. WILL MONITOR PT.
[2020-03-14 03:31] VITALS: BP 157/67
[2020-03-14] MEDS: BENZONATATE 100 MG CAPSULE PO SCH ×3 (05:26→22:40)
--- NOTE | 2020-03-14 05:26 | NUR ---
MEDS AWAKENED PT FOR DUE MEDS, TOLERATED WELL. NO CONCERNS VERBALIZED. BREATHING WITH EASE ON RA. KEPT RESTED FOR MORE CARE.
[2020-03-14 05:52] LABS: HEMATOCRIT 27.3 % (42-54); MEAN CORPUSCULAR HEMOGLOBIN 28.3 pg (27.0-33.0); MEAN CORPUSCULAR HGB CONC 33.3 g/dL (32.0-36.0); MEAN CORPUSCULAR VOLUME 84.8 fL (79-99); RED BLOOD CELL COUNT(AUTO) 3.22 MIL/uL (4.50-6.20); RED CELL DISTRIBUTION WIDTH 13.7 % (11.0-15.5); WHITE BLOOD COUNT (AUTO) 4.2 K/uL (4.8-10.8)
[2020-03-14] MEDS: INSULIN R PO SS1 SQ SCH ×4 (06:23→21:00)
[2020-03-14 06:29] LABS: ALBUMIN 2.3 g/dL (3.5-5.0); BILIRUBIN,TOTAL 0.4 mg/dL (0.2-1.0); CREATININE 6.8 mg/dL (0.5-1.5); POTASSIUM 3.5 mmol/L (3.5-5.1); TOTAL PROTEIN, SERUM 7.5 g/dL (6.0-8.3)
[2020-03-14 08:00] VITALS: BP 140/59
[2020-03-14] MEDS: PANTOPRAZOLE SODIUM 40 MG TABLET.DR PO SCH (09:37)
[2020-03-14] MEDS: AZITHROMYCIN 500MG+NS 250ML 250 ML IV SCH (09:37)
[2020-03-14] MEDS: ENOXAPARIN SODIUM 30 MG/0.3 ML SQ SCH (09:38)
[2020-03-14] MEDS: HONEY 1 APPL/ML TUBE TP SCH (09:39)
[2020-03-14 11:00] VITALS: BP 128/73
[2020-03-14 15:12] LABS: HEPATITIS Bs ANTIGEN SCREEN P Negative (Negative)
[2020-03-14 16:00] VITALS: BP 131/80
--- NOTE | 2020-03-14 17:30 | NUR ---
DR. ESPINOZA AWARE OF CX ORDERS ENTERED.
[2020-03-14 20:04] VITALS: BP 134/81
[2020-03-14] MEDS: HYDROMORPHONE HCL 2 MG/ML VIAL IVP PRN ×2 (20:32→22:40)
[2020-03-14] MEDS ORDERED: LEVOFLOXACIN 500 MG TABLET PO SCH (21:00)
[2020-03-14] MEDS ORDERED: CIPROFLOXACIN HCL 250 MG TABLET PO SCH (21:00)
[2020-03-15 00:04] VITALS: BP 147/74
[2020-03-15] MEDS: HYDROMORPHONE HCL 2 MG/ML VIAL IVP PRN ×7 (00:26→23:12)
[2020-03-15 04:04] VITALS: BP 148/78
[2020-03-15] MEDS: INSULIN R PO SS1 SQ SCH ×4 (05:40→21:26)
[2020-03-15] MEDS: BENZONATATE 100 MG CAPSULE PO SCH ×3 (05:51→21:25)
[2020-03-15 07:45] VITALS: BP 145/66
[2020-03-15 07:55] LABS: HEMATOCRIT 25.8 % (42-54); MEAN CORPUSCULAR HEMOGLOBIN 28.5 pg (27.0-33.0); MEAN CORPUSCULAR HGB CONC 34.1 g/dL (32.0-36.0); MEAN CORPUSCULAR VOLUME 83.5 fL (79-99); RED BLOOD CELL COUNT(AUTO) 3.09 MIL/uL (4.50-6.20); WHITE BLOOD COUNT (AUTO) 4.4 K/uL (4.8-10.8)
[2020-03-15 08:10] LABS: CREATININE 7.6 mg/dL (0.5-1.5); POTASSIUM 3.4 mmol/L (3.5-5.1)
[2020-03-15] MEDS: PANTOPRAZOLE SODIUM 40 MG TABLET.DR PO SCH (08:39)
[2020-03-15] MEDS: AZITHROMYCIN 500MG+NS 250ML 250 ML IV SCH (08:39)
[2020-03-15] MEDS: LEVOFLOXACIN 500 MG TABLET PO SCH (08:40)
[2020-03-15] MEDS: ENOXAPARIN SODIUM 30 MG/0.3 ML SQ SCH (08:41)
[2020-03-15] MEDS: HONEY 1 APPL/ML TUBE TP SCH (08:41)
--- NOTE | 2020-03-15 09:47 | NUR ---
HD PT STARTED HD
[2020-03-15] MEDS ORDERED: HEPARIN SODIUM 5000UNIT/ML 1ML VIAL ONE ×2 (10:00→10:02)
--- NOTE | 2020-03-15 10:54 | NUR ---
RDSCREEN - LOS X 7 Pt admitted with PNA, renal failure. Positive for COVID-19. Hx DM, HTN, PVD, Foot ulcers, ESRD on hemodialysis. Pt with Dialysis, 75gm CC diet, vegan/vegetarian diet order. PO intake at 100% no report of GI distress. Protein supplementation contraindicated due to vegan/vegetarian. K 3.4, BUN 45, Ca 7.6, GFR 8, BG 119, Alb 2.3. Right Heel ulcer. Medihoney in place. Recommend continue diet order. RD to continue to monitor. Please notify as nutrition concerns arise. Thank you.
[2020-03-15 11:00] VITALS: BP 109/69
[2020-03-15] MEDS ORDERED: EPOETIN ALFA 10,000 UNIT/ML VIAL SQ SCH (12:30)
--- NOTE | 2020-03-15 12:48 | NUR ---
HD PT [facility] HD WELL NO COMPILATIONS REMOVED 3 LITERS IN 3 HRS .
[2020-03-15] MEDS: EPOETIN ALFA 10,000 UNIT/ML VIAL SQ SCH (14:26)
[2020-03-15] MEDS: VANCOMYCIN 1.25 GM in SODIUM CHLORIDE 0.9% 250 ML IV SCH (15:07)
--- NOTE | 2020-03-15 15:27 | NUR ---
CM Note: EMS transport to [facility] CM faxed request for [facility] transport from home to [facility] every MWF for outpatient dialysis and back to home after treatments, confirmation received. Pending approval. CM to cont to follow up. CM faxed [facility] request for transport to and from home to [facility] for outpatient dialysis, aware [place] [employer] pending approval for transportation via [facility]. CM to cont to follow up.
[2020-03-15 16:00] VITALS: BP 126/69
[2020-03-15 20:04] VITALS: BP 114/71
[2020-03-16] VITALS (7 sets, daily range): BP systolic 123–153; BP diastolic 63–86
[2020-03-16] MEDS: HYDROMORPHONE HCL 2 MG/ML VIAL IVP PRN ×5 (01:24→22:07)
[2020-03-16] MEDS: INSULIN R PO SS1 SQ SCH ×4 (05:28→22:03)
[2020-03-16] MEDS: BENZONATATE 100 MG CAPSULE PO SCH ×3 (05:35→22:02)
[2020-03-16 07:39] LABS: HEMATOCRIT 26.9 % (42-54); MEAN CORPUSCULAR HEMOGLOBIN 28.9 pg (27.0-33.0); MEAN CORPUSCULAR HGB CONC 34.2 g/dL (32.0-36.0); MEAN CORPUSCULAR VOLUME 84.6 fL (79-99); PLATELET COUNT (AUTO) 358 K/uL (130-400); RED BLOOD CELL COUNT(AUTO) 3.18 MIL/uL (4.50-6.20); RED CELL DISTRIBUTION WIDTH 13.9 % (11.0-15.5); WHITE BLOOD COUNT (AUTO) 4.1 K/uL (4.8-10.8)
[2020-03-16 07:48] LABS: CREATININE 5.8 mg/dL (0.5-1.5); POTASSIUM 3.4 mmol/L (3.5-5.1)
[2020-03-16] MEDS: PANTOPRAZOLE SODIUM 40 MG TABLET.DR PO SCH (08:51)
[2020-03-16] MEDS: AZITHROMYCIN 500MG+NS 250ML 250 ML IV SCH (08:51)
[2020-03-16] MEDS: LEVOFLOXACIN 500 MG TABLET PO SCH (08:58)
[2020-03-16] MEDS: HONEY 1 APPL/ML TUBE TP SCH (08:59)
[2020-03-16] MEDS: ENOXAPARIN SODIUM 30 MG/0.3 ML SQ SCH (08:59)
[2020-03-16 09:26] LABS: BAND NEUTROPHILS % (MANUAL) 1 % (0-2); BASOPHILS % (MANUAL) 1 % (0-2); EOSINOPHILS % (MANUAL) 3 % (1-6); LYMPHOCYTES % (MANUAL) 27 % (22-44); MAN.DIFF COMMENT-IMPRESSION MANUAL DIFFERENTIAL; MONOCYTES % (MANUAL) 9 % (2-9); PLATELET MORPHOLOGY COMMENT ADEQUATE; SEGMENTED NEUTROPHILS % 59 % (40-70)
[2020-03-16] MEDS: VANCOMYCIN 1.25 GM in SODIUM CHLORIDE 0.9% 250 ML IV SCH (14:19)
--- NOTE | 2020-03-16 15:09 | NUR ---
HD PT HAS BEEN EXCEPTED TO [facility]. PT STATES HE HAS TRANSPORTATION FOR HD. PT WILL GET HD TOMORROW AND CAN BE D/C HOME AND DO THE REST OF HD IN [place].
--- NOTE | 2020-03-16 16:06 | NUR ---
Maria Elena SPOKE TO MANAGER PLANNING ANURAG GRACE WHO CALLED FROM [facility] TO ASK IF PT HAS BE WITHOUT FEVER FOR THREE DAYS AND HE HAS. PT WILL BE FOLLOWING UP WITH THEM ON SATURDAY FOR HIS DIALYSIS.
--- NOTE | 2020-03-16 16:12 | NUR ---
DRESSING DRESSING CHANGED WITH META HONEY, VASELINE GAUZE, AND KERLIX.
[2020-03-17] MEDS: HYDROMORPHONE HCL 2 MG/ML VIAL IVP PRN ×4 (00:08→05:55)
[2020-03-17 04:03] VITALS: BP 145/80
[2020-03-17] MEDS: INSULIN R PO SS1 SQ SCH ×3 (05:39→17:08)
[2020-03-17] MEDS: BENZONATATE 100 MG CAPSULE PO SCH ×2 (05:55→14:00)
[2020-03-17 08:33] VITALS: BP 144/76
[2020-03-17] MEDS: LEVOFLOXACIN 500 MG TABLET PO SCH (09:02)
[2020-03-17] MEDS: PANTOPRAZOLE SODIUM 40 MG TABLET.DR PO SCH (09:02)
[2020-03-17] MEDS: HONEY 1 APPL/ML TUBE TP SCH (09:02)
[2020-03-17] MEDS: ENOXAPARIN SODIUM 30 MG/0.3 ML SQ SCH (09:51)
[2020-03-17] MEDS: AZITHROMYCIN 500MG+NS 250ML 250 ML IV SCH (09:51)
[2020-03-17 12:22] VITALS: BP 132/75
--- NOTE | 2020-03-17 12:45 | NUR ---
HD PT STARTED HD
[2020-03-17] MEDS ORDERED: HEPARIN SODIUM 5000UNIT/ML 1ML VIAL ONE (14:23)
[2020-03-17] MEDS ORDERED: CIPR-278 PO (15:00)
[2020-03-17] MEDS: VANCOMYCIN 1.25 GM in SODIUM CHLORIDE 0.9% 250 ML IV SCH (15:00)
[2020-03-17] MEDS ORDERED: SULF1TAB42 PO (15:00)
--- NOTE | 2020-03-17 15:45 | NUR ---
HD FINISHED PT [facility] HD WELL NO COMPLICATIONS, THEY REMOVED 1.8 LITERS OF FLUID IN 3 HOURS, PREVIOUS WEIGHT 107.6 KG, WEIGHT NOW 105.5 KG
[2020-03-17 17:03] VITALS: BP 128/83
[2020-03-17] MEDS: EPOETIN ALFA 10,000 UNIT/ML VIAL SQ SCH (17:07)
--- NOTE | 2020-03-17 17:58 | NUR ---
DRESSING DRESSING CHANGED VASELINE SREEKANTH, META HONEY, KERLIX, SUPPLY GIVEN TO PT TO TAKE HOME TO CHANGE DRESSING.
== END 2020-03-17 20:51 | disposition home or self-care (01) | DRG 137 ==
LOC: EDH 16:47 → EDHIP 16:48 → 3AH 03-09 20:50
PROVIDERS: ADMIT Internal Medicine Nephrology; ATTEND Internal Medicine Nephrology
PROC: 5A1D70Z Performance of Urinary Filtration, Intermittent, Less than 6 Hours Per Day (ICD-10-PCS; 2020-03-08)
PROC: 5A1D70Z Performance of Urinary Filtration, Intermittent, Less than 6 Hours Per Day (ICD-10-PCS; 2020-03-10)
PROC: 5A1D70Z Performance of Urinary Filtration, Intermittent, Less than 6 Hours Per Day (ICD-10-PCS; 2020-03-12)
PROC: 5A1D70Z Performance of Urinary Filtration, Intermittent, Less than 6 Hours Per Day (ICD-10-PCS; 2020-03-15)
PROC: 5A1D70Z Performance of Urinary Filtration, Intermittent, Less than 6 Hours Per Day (ICD-10-PCS; principal; 2020-03-17)
DX: U07.1 COVID-19 (principal); N18.6 End stage renal disease; J12.89 Other viral pneumonia; L97.419 Non-pressure chronic ulcer of right heel and midfoot with unspecified severity; T82.510A Breakdown (mechanical) of surgically created arteriovenous fistula, initial encounter; Y71.2 Prosthetic and other implants, materials and accessory cardiovascular devices associated with adverse incidents; E11.22 Type 2 diabetes mellitus with diabetic chronic kidney disease; E11.621 Type 2 diabetes mellitus with foot ulcer; E11.622 Type 2 diabetes mellitus with other skin ulcer; E11.51 Type 2 diabetes mellitus with diabetic peripheral angiopathy without gangrene; D64.9 Anemia, unspecified; E87.70 Fluid overload, unspecified; I12.0 Hypertensive chronic kidney disease with stage 5 chronic kidney disease or end stage renal disease; Z99.2 Dependence on renal dialysis; Z83.3 Family history of diabetes mellitus; Z91.19 Patient's noncompliance with other medical treatment and regimen; Z79.899 Other long term (current) drug therapy
CPT/HCPCS: 36415; 71045; 73630; 80048; 80053; 80202; 81001; 82550; 82948; 83605; 83735; 83874; 84100; 84145; 84484; 85025; 85027; 85610; 85651; 85730; 86704; 86706; 86900; 86901; 87040; 87070; 87077; 87088; 87186; 87340; 87520; 87804; 90935; 93005; 99291; G0378; J0456; J0696; J0885; J1170; J1644; J1650; J1815; J3370; J7050; U0003

== ENCOUNTER 2022-04-03 06:00 | Day surgery (SDC) | payer MEDICARE ==
[2022-03-29 15:22] LABS: EOSINOPHILS % (AUTO) 1.4 % (0.0-8.0); HEMATOCRIT 25.7 % (42-54); LYMPHOCYTES % (AUTO) 18.2 % (21.0-51.0); MEAN CORPUSCULAR HEMOGLOBIN 30.4 pg (27.0-33.0); MEAN CORPUSCULAR HGB CONC 33.9 g/dL (32.0-36.0); MEAN CORPUSCULAR VOLUME 89.9 fL (79-99); MONOCYTES % (AUTO) 10.1 % (3.0-13.0); NEUTROPHILS % (AUTO) 69.1 % (40.0-77.0); PLATELET COUNT (AUTO) 178 K/uL (130-400); RED BLOOD CELL COUNT(AUTO) 2.86 MIL/uL (4.50-6.20); RED CELL DISTRIBUTION WIDTH 13.9 % (11.0-15.5)
[2022-03-29 15:29] LABS: CREATININE 7.2 mg/dL (0.5-1.5); POTASSIUM 3.9 mmol/L (3.5-5.1)
[2022-03-29 15:32] LABS: PROTHROMBIN TIME 10.9 SEC (9.6-11.6)
[2022-03-29 15:33] LABS: PARTIAL THROMBOPLASTIN TIME 26.6 SEC (26.3-35.5)
[2022-03-29 15:38] LABS: APPEARANCE,URINE CLEAR (CLEAR); BILIRUBIN,URINE NEGATIVE (NEGATIVE); COLOR,URINE YELLOW (YELLOW); GLUCOSE, URINE (UA) 500 mg/dL (NEGATIVE); KETONES,URINE NEGATIVE (NEGATIVE); LEUKOCYTE ESTERASE ,URINE NEGATIVE (NEGATIVE); NITRATE,URINE NEGATIVE (NEGATIVE); OCCULT BLOOD,URINE SMALL (NEGATIVE); PROTEIN,URINE 100 mg/dL (NEGATIVE); UROBILINOGEN,URINE 0.2 mg/dL (0.2-1.0)
[2022-03-29 15:49] LABS: BACTERIA,URINE Few /HPF (None Seen); HYALINE CASTS, URINE 0-1 /LPF (0-1 /LPF); RBC,URINE None Seen /HPF (0-1); SQUAMOUS EPITHELIAL CELL,UR None Seen /HPF (0-2)
[2022-04-03] VITALS (10 sets, daily range): BP systolic 127–143; BP diastolic 72–81
[~2022-04-03] VITALS: Ht 172.7 cm; Wt 123.0 kg
[~2022-04-03 06:00] MED LIST changes: +ASCO500T20 PO; -ATOR20TA65 PO; -FAMO20TA8 PO; -Folic Acid/Vitamin B Comp W-C PO; +INS7030 SQ; -INSU10VI3 SQ; +ISOS30TA92 PO; +LATA7.5D OS; -LEVO500T2 PO; -LISI-613 PO; +LISI20TA24 PO; +ZINC220C6 PO
[2022-04-03] MEDS ORDERED: IOHEXOL 350 MG/ML 100ML INFUS..BTL IV ONE (07:20)
[2022-04-03] MEDS ORDERED: LIDOCAINE HCL 1% 20 ML VIAL ONE (07:20)
[2022-04-03] MEDS ORDERED: IOHEXOL-350 50ML VIAL IV ONE (07:20)
[2022-04-03] MEDS ORDERED: HEPARIN 10,000 UNIT/10ML (1,000 UNIT/ML) VIAL ONE (07:20)
[2022-04-03] MEDS ORDERED: NITROGLYCERIN 50MG VIAL ONE (07:20)
[2022-04-03] MEDS ORDERED: FENTANYL CITRATE PF 50 MCG/1 ML 2ML VIAL ONE (07:21)
[2022-04-03] MEDS ORDERED: MIDAZOLAM HCL 1 MG/ML 2ML VIAL ONE (07:21)
[2022-04-03] MEDS ORDERED: 0.9%NACL 1000ML 1,000 ML IV ONE (08:01)
[2022-04-03] MEDS ORDERED: DEXTROSE 50%-WATER 50 ML DISP.SYRIN IV PRN (08:30)
[2022-04-03] MEDS ORDERED: GLUCAGON 1MG KIT 1 MG ML IM PRN (08:30)
== END 2022-04-03 15:05 | disposition home or self-care (01) ==
LOC: DAH 06:00
PROVIDERS: ATTEND Internal Medicine Cardiovascular Disease
DX: I21.4 Non-ST elevation (NSTEMI) myocardial infarction (principal); I25.119 Atherosclerotic heart disease of native coronary artery with unspecified angina pectoris; E78.5 Hyperlipidemia, unspecified; E11.22 Type 2 diabetes mellitus with diabetic chronic kidney disease; I12.0 Hypertensive chronic kidney disease with stage 5 chronic kidney disease or end stage renal disease; N18.6 End stage renal disease; Z86.16 Personal history of COVID-19; Z99.2 Dependence on renal dialysis; Z79.899 Other long term (current) drug therapy; Z79.01 Long term (current) use of anticoagulants
CPT/HCPCS: 80048; 85025; 85610; 85730; 81001; 36415; 71045; 93005; 93454; 82948 ×2; C1894 ×2; C1760; J3010; J7030; J2250; J1644; J3490; Q9967; A4215; A4222; A4221; A4663; A4216; A4606; Q9965 ×2; A4223 ×3; 99156; 99157

== ENCOUNTER → 2022-04-05 | Outpatient (CLI) | payer MEDICARE | END | disposition home or self-care (01) | LOC: RAH 12:42 | PROVIDERS: ATTEND Internal Medicine Cardiovascular Disease | DX: I08.0 Rheumatic disorders of both mitral and aortic valves (principal); I11.9 Hypertensive heart disease without heart failure; I25.10 Atherosclerotic heart disease of native coronary artery without angina pectoris; E11.9 Type 2 diabetes mellitus without complications | CPT/HCPCS: 93306 ==